=== PATIENT | male | born 1970 | race Caucasian/White ===

== ENCOUNTER 2017-02-09 13:02 | Observation (INO) | payer MEDICARE, OTHER ==
[2017-02-09 13:47] LABS: BASOPHILS % (AUTO) 0.7 %; EOSINOPHILS % (AUTO) 1.1 %; HCT - HEMATOCRIT 42.2 % (42.0-52.0); HGB - HEMOGLOBIN 14.4 g/dL (14.0-18.0); LYMPHOCYTES # (AUTO) 0.3 10^3/uL (1.5-3.5); MEAN CORPUSCULAR HEMOGLOBIN 28.7 pg (27.0-31.0); MEAN CORPUSCULAR HGB CONC 34.2 g/dL (32.0-36.0); MEAN PLATELET VOLUME 8.3 fL (7.4-11.4); MONOCYTES # (AUTO) 0.3 10^3/uL (0.0-1.0); MONOCYTES % (AUTO) 6.8 %; NEUTROPHILS % (AUTO) 84.4 %; RED BLOOD COUNT 5.03 10^6/uL (4.70-6.10); RED CELL DISTRIBUTION WIDTH 14.2 % (12.0-15.0); UNCORRECTED WHITE BLOOD COUNT 4.7 x10^3/uL; WHITE BLOOD COUNT 4.7 x10^3/uL (4.8-10.8)
[2017-02-09 14:10] LABS: ALBUMIN/GLOBULIN RATIO 1.3 (1.0-2.2); BILIRUBIN,TOTAL 0.5 mg/dL (0.2-1.0); CALCIUM 9.7 mg/dL (8.5-10.3); CREATININE 0.8 mg/dL (0.6-1.2); POTASSIUM 3.8 mmol/L (3.5-5.0); TOTAL PROTEIN 7.4 g/dL (6.7-8.2)
--- NOTE | 2017-02-09 14:18 | XRAY Preliminary Report ---
Exam: XR CHEST 1 VIEW IMPRESSION: Normal single view chest. [facility] SITE ID: [id number]
--- NOTE | 2017-02-09 14:23 | ED Physician Documentation ---
History of Present Illness - Stated complaint Stated Complaint: LIGHTHEADED - Chief complaint Chief Complaint: Cardiac - Additonal information Additional information: 46-year-old male presents to the emergency department with bilateral chest tightness for the last 1 day. The chest tightness happened yesterday, it is similar to the "MS squeeze "that he has felt in the past except he has had some substernal pain that comes and goes that is worse And that he has never experienced before.The tightness such that he cannot take a deep breath was present for several hours yesterday while the substernal pain came and went. It had improved by the time he went to bed last night. He resumed this morning around 9 AM in a similar fashion but worse.He also reports that when he gets up and stands he feels lightheaded and dizzy. He had a cough yesterday that was nonproductive as no fevers, no lower extremity swelling. His father had an ND before the age of 50, he has a 10-15 year pack history of smoking but is not a current smoker, he also has hypertension and hyperlipidemia. He has never had a cardiac workup before. Review of Systems Constitutional: denies: Fever Eyes: denies: Loss of vision Nose: denies: Congestion Cardiac: reports: Chest pain / pressure. denies: Pedal edema Respiratory: reports: Dyspnea, Cough GI: denies: Abdominal Pain, Nausea, Vomiting : denies: Dysuria Skin: denies: Rash Musculoskeletal: denies: Extremity swelling Neurologic: reports: Other (Lightheadedness with Standing) PD PAST MEDICAL HISTORY - Past Medical History Cardiovascular: Hypertension Respiratory: None Neuro: Multiple sclerosis Endocrine/Autoimmune: None GI: Other : None HEENT: None Psych: None Musculoskeletal: None Derm: None - Past Surgical History Past Surgical History: No General: Cholecystectomy Ortho: Other - Present Medications Home Medications: Ambulatory Orders Medication Instructions Recorded Confirmed Amantadine HCl [Amantadine] 100 mg PO BID 08/01/13 02/09/17 Baclofen 30 mg PO QID 08/01/13 02/09/17 Meloxicam [Mobic] 15 mg PO DAILY PRN 08/01/13 02/09/17 diphenhydrAMINE [Benadryl] 50 mg PO QPM 08/01/13 02/09/17 Cholecalciferol (Vitamin D3) 1,000 unit PO DAILY 09/06/13 02/09/17 [Vitamin D] Multivitamin [Multi Vitamin Daily] 1 tab PO DAILY 09/06/13 02/09/17 Niacin 500 mg PO DAILY 09/06/13 02/09/17 [place]-3/Dha/Epa/Dpa/Fish Oil 1,000 mg PO DAILY 09/06/13 02/09/17 [[place]-3 1,050 mg Softgel] Cyanocobalamin [Vitamin B-12] 500 mg PO DAILY 05/07/14 02/09/17 Fingolimod HCl [Gilenya] 0.5 mg PO DAILY 11/13/14 02/09/17 Losartan [Cozaar] 50 mg PO DAILY 01/02/15 02/09/17 amLODIPine [Norvasc] 5 mg PO DAILY 02/04/16 02/09/17 Cetirizine [ZyrTEC] 10 mg PO DAILY 04/26/16 02/09/17 - Allergies Allergies/Adverse Reactions: Allergies Allergy/AdvReac Type Severity Reaction Status Date / Time No Known Drug Allergies Allergy Verified 02/09/17 13:19 - Social History Does the pt smoke?: Yes Smoking Status: Former smoker Does the pt drink ETOH?: Yes Does the pt have substance abuse?: No - Immunizations Immunizations are current?: Yes - POLST Patient has POLST: No PD ED PE NORMAL - Vitals Vital signs reviewed: Yes - General General: Alert and oriented X 3, No acute distress - HEENT HEENT: Atraumatic - Neck Neck: Supple, no meningeal sign - Cardiac Cardiac: RRR, No murmur - Respiratory Respiratory: No respiratory distress, Clear bilaterally - Abdomen Abdomen: Normal bowel sounds, Soft, Non tender - Derm Derm: Warm and dry - Extremities Extremities: No edema, No calf tenderness / cord - Neuro Neuro: Alert and oriented X 3, No motor deficit, No sensory deficit Results - Vitals Vitals: Vital Signs - 24 hr 02/09/17 13:15 Temperature 36.8 C Heart Rate 93 Respiratory 16 Rate Blood Pressure 143/100 H O2 Saturation 100 Oxygen O2 Source Room air - EKG (time done) 1314 Rate: Rate (enter#) (93) Rhythm: NSR [place]: Normal Intervals: Normal [place], QRS normal QRS: Normal Ischemia: ST depression (1mm or less lead I, V4-V6, no ST elevations) - Labs Labs: Laboratory Tests 02/09/17 02/09/17 02/09/17 13:30 13:30 13:30 WBC 4.7 L RBC 5.03 Hgb 14.4 Hct 42.2 MCV 84.0 MCH 28.7 MCHC 34.2 RDW 14.2 Plt Count 296 MPV 8.3 Neut # 4.0 Lymph # 0.3 L [place] # 0.3 Eos # 0.0 Baso # 0.0 Absolute Nucleated RBC 0.00 Nucleated RBC % 0.0 D-Dimer Sodium 137 Potassium 3.8 Chloride 101 Carbon Dioxide 24 Anion Gap 12.0 BUN 14 Creatinine 0.8 Estimated GFR (MDRD) 104 Glucose 172 H Calcium 9.7 Total Bilirubin 0.5 AST 32 ALT 63 H Alkaline Phosphatase 55 Troponin I < 0.04 Total Protein 7.4 Albumin 4.2 Globulin 3.2 Albumin/Globulin Ratio 1.3 Lipase 24 02/09/17 13:30 WBC RBC Hgb Hct MCV MCH MCHC RDW Plt Count MPV Neut # Lymph # [place] # Eos # Baso # Absolute Nucleated RBC Nucleated RBC % D-Dimer < 200.0 L Sodium Potassium Chloride Carbon Dioxide Anion Gap BUN Creatinine Estimated GFR (MDRD) Glucose Calcium Total Bilirubin AST ALT Alkaline Phosphatase Troponin I Total Protein Albumin Globulin Albumin/Globulin Ratio Lipase PD MEDICAL DECISION MAKING - ED course ED course: 46-year-old male presents to the emergency department with 2 different qualities of chest pain over the last 24 hours, one is a generalized chest squeezing, the other is a substernal pain.While the constant squeezing is somewhat atypical for cardiac chest pain, his substernal discomfort is more concerning to me given that the patient has multiple risk factors including a smoking history, early history of ND in his father and hypertension as well as hyperlipidemia. He is moderate risk by heart score. D-dimer negative, low suspicion for PE. Discussed with neurology possibility of MS related illness, per conversation he would have no life-threatening diagnoses related to his MS. Neurologist also warned that the patient may have a low lymphocyte count from his MS medication Gilenya, but this does not indicate immunosuppression. 332pm Discussed patient's case with Dr. Parmar, agrees with observation stay for rule out ND, updated patient and his regarding this plan. Patient ordered for an aspirin. - Consults Consults: Consulted (name) (Dr. 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
--- NOTE | 2017-02-09 14:40 | XRAY Report ---
EXAM: CHEST RADIOGRAPHY EXAM DATE: 02/09/2017 01:50 PM. CLINICAL HISTORY: Shortness of breath, chest pain. COMPARISON: No prior chest. CT abdomen and pelvis 07/26/2015. TECHNIQUE: 1 view. FINDINGS: Lungs/Pleura: No focal opacities evident. No pleural effusion. No pneumothorax. Mediastinum: Within exam limitations, the cardiomediastinal contour is normal. Other: None. IMPRESSION: Normal single view chest. [facility] Referring Provider Line: [phone] SITE ID: [id number]
[2017-02-09] MEDS ORDERED: ASPIRIN CHEW 81 MG TABLET PO STA (15:27)
[2017-02-09] MEDS ORDERED: ASPIRIN CHEW 81 MG TABLET ONE (15:36)
[2017-02-09] MEDS ORDERED: NITROGLYCERIN SL 0.4 MG TABLET SL PRN (15:57)
[2017-02-09] MEDS ORDERED: ACETAMINOPHEN 325 MG TABLET PO PRN (16:04)
[2017-02-09] MEDS ORDERED: ONDANSETRON 4 MG/2 ML VIAL IVP PRN (16:06)
[2017-02-09] MEDS ORDERED: SODIUM CHLORIDE FLUSH 0.9% 10 ML SYRINGE IVP PRN (16:07)
[2017-02-09] MEDS ORDERED: CETIRIZINE 10 MG TABLET PO PRN (16:10)
--- NOTE | 2017-02-09 16:15 | HISTORY & PHYSICAL EXAMINATION ---
Chief Complaint - Chief Complaint Chief Complaint: chest pain History of Present Illness - Admitted From Admitted From:: ER - History Obtained From History obtained from: pt - History of Present Illness HPI Comment/Other: This a 46-year-old male with a significant past medical history of MS , HTN, Hyperlipidemia, history of cigarette smoking, who present ER complains of chest tightness, and left anterior chest pain. Pt report his chest pain is on and off, sharpness. The pain suddenly appears and last about 5 minutes. Pt also report he feel some of shortness of breath when he feel chest tightness. Pt report he feel left neck pain which is associated with left chest pain. Pt report his father had an [place] before the age of 50 yrs. Pt report he has around 15 years history of cigarette smoking but not currently. No alcohol and drug issue. Pt denies the chest pain is associated with nausea, vomiting, or diaphoresis. ER provider called pt's neurologist about his chest tightness with history of MS. Neurologist report this parethesia may due to called "MS HUG" which wound not cause severe sequel or require emergence treatment. Pt's D- dimer is negative, low suspicion for PE regarding pt's reporting of some shortness of breath. Initiatly troponin is negative. EKG is sinus rhythm. Pt is admitted for chest pain for ruling out of [place]. History - Past Medical History Cardiovascular: reports: Hypertension Respiratory: reports: None Neuro: reports: Multiple sclerosis Endocrine/Autoimmune: reports: None GI: reports: Other : reports: None HEENT: reports: None Psych: reports: None Musculoskeletal: reports: None Derm: reports: None MRSA Hx?: No - Past Surgical History General: reports: Cholecystectomy Ortho: reports: Other - Family & Social History Family History: Mother: , Cancer, Hypertension, Father: , CAD Family History Comment/Other: Pt report he retired due to disability. Pt is with her and living at [place] with four children. pt report he has history of cigarette smoker but no alcoholic and drug issue. Living arrangement: At home Living Situation: With spouse/s.o., With family - Substance History Use: Uses substance without health or social issues: NONE Abuse: Recurrent use of substance despite neg consequences: NONE Dependence: Experiences withdrawal or developed tolerances: NONE Tobacco Details: Cigarettes - POLST Patient has POLST: No POLST Status: Full Code Meds/Allgy - Home Medications Home Medications: Ambulatory Orders Medication Instructions Recorded Confirmed Amantadine HCl [Amantadine] 100 mg PO BID 08/01/13 02/09/17 Meloxicam [Mobic] 15 mg PO DAILY PRN 08/01/13 02/09/17 diphenhydrAMINE [Benadryl] 50 mg PO QPM 08/01/13 02/09/17 Cholecalciferol (Vitamin D3) 2,000 unit PO DAILY 09/06/13 02/09/17 [Vitamin D] Losartan [Cozaar] 100 mg PO DAILY 01/02/15 02/09/17 amLODIPine [Norvasc] 2.5 mg PO DAILY 02/04/16 02/09/17 Cetirizine [ZyrTEC] 10 mg PO DAILY PRN 04/26/16 02/09/17 Baclofen 30 mg PO QID 02/09/17 02/09/17 Fingolimod HCl [Gilenya] 0.5 mg PO DAILY 02/09/17 02/09/17 Multivitamin [Theragran] 1 tab PO DAILY 02/09/17 02/09/17 - Allergies Allergies/Adverse Reactions: Allergies Allergy/AdvReac Type Severity Reaction Status Date / Time No Known Drug Allergies Allergy Verified 02/09/17 13:19 Review of Systems - Constitutional Constitutional: denies: Fatigue, Fever, Chills, Malaise, Weakness, Poor appetite , Diaphoresis, Night sweats - Eyes Eyes: denies: Pain, Irritation, Amaurosis, Blurred vision, Spots in vision, Field loss, Vision loss, Dipolpia - Ears, Nose & Throat Ears, Nose & Throat: denies: Ear pain, Hearing loss, Hearing aids, Tinnitus, Vertigo, Nasal pain, Nasal discharge, Nosebleeds, Nasal congestion, Sore throat , Mouth lesions, Bleeding gums - Cardiovascular Cariovascular: reports: Chest pain. denies: Irregular heart rate, Palpitations , Edema, Lightheadedness, Syncope, Exertional dyspnea, Decr. exercise tolerance - Respiratory Respiratory: reports: SOB with exertion. denies: Cough, Sputum production, Wheezing, Snoring, Hemoptysis, Orthopnea, SOB at rest - Gastrointestinal Gastrointestinal: denies: Abdominal pain, Abdominal distention, Constipation, Diarrhea, Change in bowel habits, Rectal bleeding, Black stools, Bloody stools, Nausea, Vomiting, Marvin blood emesis, Coffee grounds emesis - Genitourinary Genitourinary: denies: Dysuria, Frequency, Urgency, Hematuria, Incontinence, Flank pain, Nocturia, Urethral discharge - Musculoskeletal Musculoskeletal: denies: Muscle pain, Back pain, Muscle aches, Stiffness, Limited range of motion, Muscle weakness, Gout, Joint pain - Integumentary Integumentary: denies: Rash, Pruritis, Lesions, Dryness, Lumps, Acne, Pigment changes, Nail changes - Neurological Neurological: denies: General weakness, Focal weakness, Headache, Dizziness, Numbness, Memory problems, Pre-existing deficit, Abnormal gait, Seizures, Incoordination, Slurred speech - Psychiatric Psychiatric: denies: Depression, Anxiety, Suicidal, Delusions, Hallucinations, Homicidal - Endocrine Endocrine: denies: Polyuria, Polydypsia, Polyphagia, Intolerance to cold - Hematologic/Lymphatic Hematologic/Lymphatic: denies: Anemia, Bruising, Petechiae, Blood clots, Lymphadenopathy, Bleeding tendencies, Recurrent infections Exam - Vital Signs Reviewed Vital Signs: Yes Vital Signs: Vital Signs x48h Temp Pulse Resp BP Pulse Ox 02/09/17 13:15 36.8 C 93 16 143/100 H 100 - Physical Exam General Appearance: positive: No acute distress, Alert. negative: Lethargic Eyes Bilateral: positive: Normal inspection, PERRL, EOMI. negative: No lid inflammation, Conjunctivae nml ENT: positive: ENT inspection nml, Pharynx nml, No signs of dehydration. negative: Purulent nasal drainage, Pharyngeal erythema, Oral lesions, Dry mucous membranes Neck: positive: Nml inspection, Thyroid nml, No JVD, Trachea midline. negative : Thyromegaly, Lymphadenopathy (R), Lymphadenopathy (L), Stiff neck, Carotid bruit, Swelling/bruising, Tracheal deviation Respiratory: positive: Chest non-tender, No respiratory distress, Breath sounds nml. negative: Wheezes, Rales, Rhonchi Cardiovascular: positive: Regular rate & rhythm, No murmur, No gallop. negative : Irregularly irregular, Extrasystoles, Tachycardia, Bradycardia, Systolic murmur, Diastolic murmur Peripheral Pulses: positive: 2+ Abdomen: positive: Non-tender, No organomegaly, Nml bowel sounds, No distention. negative: Tenderness, Guarding, Rebound, Abnml bowel sounds Back: positive: Nml inspection. negative: CVA tenderness (R), CVA tenderness (L ) Skin: positive: Color nml, No rash, Warm, Dry. negative: Cyanosis, Diaphoresis , Pallor Extremities: positive: Non-tender, Full ROM, Nml appearance. negative: Calf tenderness, Joint swelling, Odell's sign/cords Neurologic/Psychiatric: positive: Oriented x3, Motor nml, Sensation nml, Mood/ affect nml. negative: Weakness, Sensory loss, Facial droop, Slurred/abnml speech, Depressed mood/affect Conclusion/Plan - Problem List (1) Chest pain Conclusion/Plan: pt with history of cigarette smoking, HTN, hyperlipidemia, strong family history of CAD. pt did not have cardiac workup before plan: serial of troponin Nitro PRN Aspirin 81 daily. Aspirin has been given 325 mg at ER EKG PRN ECHO lipid panel Mycardia perfusion test (2) Multiple sclerosis Conclusion/Plan: ER called pt's neurologist, most likely pt may have MS hug, resume Gilenya vital and tele monitor will try Gabapentin if symptom insistence (3) Hypertension Conclusion/Plan: stable BP, resume home BP meds vital monitor (4) Hyperlipidemia Conclusion/Plan: resume home meds, recheck lipid panel (5) DVT prophylaxis Conclusion/Plan: SCD and lovenox (6) Full code status Conclusion/Plan: pt request full code - Lab Results Fish Bones: 02/10/17 02:57 02/10/17 02:57 Issues/Core Measures - Anticipated LOS Anticipated Stay Length: Less than 2 midnights (expected less than 2 midnights for chest pain rule out) - [facility] Requirement for [facility] I expect patient to be DC'd or transferred within 96 hours.: Yes
[2017-02-09] MEDS: BACLOFEN 10 MG TABLET PO SCH ×2 (17:16→21:11)
[2017-02-09] MEDS ORDERED: CALCIUM CARBONATE CHEW 500 MG TABLET PO PRN (19:17)
[2017-02-09] MEDS ORDERED: diphenhydrAMINE 25 MG CAPSULE PO SCH (21:00)
[2017-02-09] MEDS: SODIUM CHLORIDE FLUSH 0.9% 10 ML SYRINGE IVP SCH (21:11)
[2017-02-10 03:05] LABS: BASOPHILS # (AUTO) 0.1 10^3/uL (0.0-0.1); BASOPHILS % (AUTO) 1.4 %; EOSINOPHILS # (AUTO) 0.1 10^3/uL (0.0-0.7); EOSINOPHILS % (AUTO) 1.8 %; HCT - HEMATOCRIT 40.7 % (42.0-52.0); HGB - HEMOGLOBIN 13.5 g/dL (14.0-18.0); LYMPHOCYTES # (AUTO) 0.3 10^3/uL (1.5-3.5); LYMPHOCYTES % (AUTO) 5.8 %; MEAN CORPUSCULAR HEMOGLOBIN 28.3 pg (27.0-31.0); MEAN CORPUSCULAR HGB CONC 33.2 g/dL (32.0-36.0); MEAN CORPUSCULAR VOLUME 85.2 fL (80.0-94.0); MEAN PLATELET VOLUME 8.4 fL (7.4-11.4); MONOCYTES # (AUTO) 0.3 10^3/uL (0.0-1.0); MONOCYTES % (AUTO) 6.3 %; NEUTROPHILS # (AUTO) 4.1 10^3/uL (1.5-6.6); NEUTROPHILS % (AUTO) 84.7 %; NUCLEATED RED BLOOD CELLS AUTO 0.1 /100WBC; RED BLOOD COUNT 4.77 10^6/uL (4.70-6.10); RED CELL DISTRIBUTION WIDTH 14.6 % (12.0-15.0); UNCORRECTED WHITE BLOOD COUNT 4.8 x10^3/uL; WHITE BLOOD COUNT 4.8 x10^3/uL (4.8-10.8)
[2017-02-10 03:21] LABS: ALBUMIN/GLOBULIN RATIO 1.4 (1.0-2.2); BILIRUBIN,TOTAL 0.5 mg/dL (0.2-1.0); BUN - BLOOD UREA NITROGEN 12 mg/dL (6-20); CARBON DIOXIDE - CO2 25 mmol/L (21-32); CHLORIDE 105 mmol/L (101-111); CHOL/HDL RATIO 6.2 (<5.0); CHOLESTEROL 242 mg/dL; CREATININE 0.9 mg/dL (0.6-1.2); GFR - MDRD 91 (>89); GLUCOSE 122 mg/dL (70-100); HDL CHOLESTEROL 39 mg/dL; LDL/HDL RATIO 4.4 (<3.6); POTASSIUM 3.8 mmol/L (3.5-5.0); SODIUM 142 mmol/L (135-145); TOTAL PROTEIN 6.6 g/dL (6.7-8.2); TRIGLYCERIDES 166 mg/dL; VLDL CHOLESTEROL 33 mg/dL
[2017-02-10] MEDS: BACLOFEN 10 MG TABLET PO SCH ×2 (05:06→10:24)
[2017-02-10] MEDS: SODIUM CHLORIDE FLUSH 0.9% 10 ML SYRINGE IVP SCH ×2 (05:47→15:07)
[2017-02-10] MEDS: GABAPENTIN 100 MG CAPSULE PO SCH ×2 (08:57→15:07)
[2017-02-10] MEDS ORDERED: CHOLECALCIFEROL 1,000 UNIT TABLET PO SCH (09:00)
[2017-02-10] MEDS ORDERED: LOSARTAN 50 MG TABLET PO SCH (09:00)
[2017-02-10] MEDS ORDERED: amLODIPine 5 MG TABLET PO SCH (09:00)
[2017-02-10] MEDS ORDERED: ASPIRIN EC 81 MG TABLET PO SCH (09:00)
[2017-02-10] MEDS ORDERED: MELOXICAM 7.5 MG TABLET PO PRN (09:00)
[2017-02-10] MEDS ORDERED: FAMOTIDINE 20 MG TABLET PO SCH (09:00)
[2017-02-10] MEDS ORDERED: MULTIVITAMIN TABLET PO SCH (09:00)
[2017-02-10] MEDS ORDERED: ENOXAPARIN 40 MG/0.4 ML SYRINGE SUBQ SCH (09:00)
[2017-02-10] MEDS ORDERED: SODIUM CHLORIDE 0.9% 1,000 ML IV SCH (09:00)
[2017-02-10] MEDS ORDERED: POLYETHYLENE GLYCOL 3350 17 GM PACKET PO SCH (09:00)
[2017-02-10] MEDS ORDERED: REGADENOSON 0.4 MG/5 ML SYRINGE IVP ONE ×2 (09:58→14:05)
[2017-02-10] MEDS ORDERED: AMANTADINE 100 MG CAPSULE PO SCH (10:00)
--- NOTE | 2017-02-10 10:08 | Discharge Plan ---
Discharge Plan Disposition: 01 Home, Self Care Condition: Stable Prescriptions: Gabapentin [Neurontin] 100 mg PO TID #20 capsule Diet: Cardiac Activity Restrictions: Activity as Tolerated Shower Restrictions: No Driving Restrictions: No Weight Bearing: Full Weight Instruction Topics: Multiple Sclerosis, ED Chest Pain Noncardiac Ch Additional Instructions or Follow Up instructions: May see PCP in one week, follow up the neurologist as schedule Follow-Up Care: [facility] - Cardiac No Smoking: If you smoke, Please STOP! Call for help. Follow-up with: RUPERTO DINH [Primary Care Provider] -
--- NOTE | 2017-02-10 15:02 | Nuclear Medicine Prelim Report ---
Exam: NM MYOCARDIAL PERFUSION STR/RST IMPRESSION: 1. No scintigraphic evidence of inducible ischemia or infarct. 2. Left ventricular ejection fraction estimated at 55%. [facility] The call report notification system was initiated by Dr. Fabrice Taylor at 14:52 hrs on 02/10/17. The above findings were discussed with Dr Chen by Dr. Fabrice Taylor at 15:01 hrs on 02/10/17. SITE ID: [id number]
--- NOTE | 2017-02-10 15:05 | Nuclear Medicine Report ---
EXAM: NUCLEAR MEDICINE MYOCARDIAL PERFUSION STRESS AND REST EXAM DATE: 02/10/2017 09:57 AM. CLINICAL HISTORY: Chest pain. COMPARISON: X-ray 02/09/2017. TECHNIQUE: Patient given 9.9 mCi technetium 99m sestamibi IV for the rest portion of the study. Gated cardiac SPECT scintigraphy performed with multiplanar reformats. After an appropriate delay, patient given 0.4 mg Lexiscan IV for pharmacologic stress. Next, patient given 42.6 mCi technetium 99m sestamibi IV. Cardiac gated SPECT scintigraphy performed with wall fredy on analysis, multiplanar reformats and left ventricular ejection fraction estimation. FINDINGS: There is uniform radiopharmaceutical activity in the left ventricular myocardium on stress and rest i maging. No stress related fixed or reversible perfusion defects. Left ventricular ejection fraction estimated at 55%. Wall motion appears uniform. IMPRESSION: 1. No scintigraphic evidence of inducible ischemia or infarct. 2. Left ventricular ejection fraction estimated at 55%. JEREMIAHA The call report notification system was initiated by Dr. Fabrice Taylor at 14:52 hrs on 02/10/17. The above findings were discussed with Dr Chne by Dr. Fabrice Taylor at 15:01 hrs on 02/10/17. Referring Provider Line: [phone] SITE ID: [id number]
--- NOTE | 2017-02-10 15:23 | DISCHARGE SUMMARY ---
Discharge Summary Discharge Date: 02/10/17 Discharging Provider: GREEN Primary Care Provider: Anders Sage Condition at Discharge: Stable Discharge Disposition: 01 Home, Self Care Discharge Facility Name: home - DIAGNOSES Admission Diagnoses: 1) Chest pain (2) Multiple sclerosis (3) Hypertension (4) Hyperlipidemia Discharge Diagnoses with Status of Each Condition: (1) Chest pain no more chest pain. Chest tightness is released by medication Gabapentin (2) Multiple sclerosis stable, follow up pt's neurologist to manage (3) Hypertension stable (4) Hyperlipidemia PCP management - HPI History of Present Illness: please refer from my HPI on 02/09/17 as the following: This a 46-year-old male with a significant past medical history of MS , HTN, Hyperlipidemia, history of cigarette smoking, who present ER complains of chest tightness, and left anterior chest pain. Pt report his chest pain is on and off, sharpness. The pain suddenly appears and last about 5 minutes. Pt also report he feel some of shortness of breath when he feel chest tightness. Pt report he feel left neck pain which is associated with left chest pain. Pt report his father had an [place] before the age of 50 yrs. Pt report he has around 15 years history of cigarette smoking but not currently. No alcohol and drug issue. Pt denies the chest pain is associated with nausea, vomiting, or diaphoresis. ER provider called pt's neurologist about his chest tightness with history of MS. Neurologist report this parethesia may due to called "MS HUG" which wound not cause severe sequel or require emergence treatment. Pt's D- dimer is negative, low suspicion for PE regarding pt's reporting of some shortness of breath. Initiatly troponin is negative. EKG is sinus rhythm. Pt is admitted for chest pain for ruling out of [place]. - CONSULTS | PROCEDURES Procedures: myocardium perfusion test - HOSPITAL COURSE Hospital Course: Pt was admitted for chest pain, chest tightness. Troponin serial, EKG, ECHO, and myocardium perfusion were done base on pt's cardiac risks. All these tests are unremarkable. Pt's chest tightness is well controlled by Gabapentin. - ALLERGIES Allergies/Adverse Reactions: Allergies Allergy/AdvReac Type Severity Reaction Status Date / Time No Known Drug Allergies Allergy Verified 02/09/17 13:19 - MEDICATIONS Home Medications: Ambulatory Orders Medication Instructions Recorded Confirmed Amantadine HCl [Amantadine] 100 mg PO BID 08/01/13 02/09/17 Meloxicam [Mobic] 15 mg PO DAILY PRN 08/01/13 02/09/17 diphenhydrAMINE [Benadryl] 50 mg PO QPM 08/01/13 02/09/17 Cholecalciferol (Vitamin D3) 2,000 unit PO DAILY 09/06/13 02/09/17 [Vitamin D3] Losartan [Cozaar] 100 mg PO DAILY 01/02/15 02/09/17 amLODIPine [Norvasc] 2.5 mg PO DAILY 02/04/16 02/09/17 Cetirizine [ZyrTEC] 10 mg PO DAILY PRN 04/26/16 02/09/17 Baclofen 30 mg PO QID 02/09/17 02/09/17 Fingolimod HCl [Gilenya] 0.5 mg PO DAILY 02/09/17 02/09/17 Multivitamin [Theragran] 1 tab PO DAILY 02/09/17 02/09/17 Gabapentin [Neurontin] 100 mg PO TID #20 capsule 02/10/17 - PHYSICAL EXAM AT DISCHARGE General Appearance: positive: No acute distress, Alert. negative: Lethargic Eyes Bilateral: positive: Normal inspection, PERRL, No lid inflammation, Conjunctivae nml ENT: positive: ENT inspection nml, Pharynx nml, No signs of dehydration. negative: Purulent nasal drainage, Pharyngeal erythema, Oral lesions, Dry mucous membranes Neck: positive: Nml inspection, Thyroid nml, No JVD, Trachea midline. negative : Thyromegaly, Lymphadenopathy (R), Lymphadenopathy (L), Stiff neck, Carotid bruit, Swelling/bruising, Tracheal deviation Respiratory: positive: Chest non-tender, No respiratory distress, Breath sounds nml. negative: Wheezes, Rales, Rhonchi Cardiovascular: positive: Regular rate & rhythm, No murmur, No gallop. negative : Irregularly irregular, Extrasystoles, Tachycardia, Bradycardia, Systolic murmur, Diastolic murmur Peripheral Pulses: positive: 2+ Abdomen: positive: Non-tender, No organomegaly, Nml bowel sounds, No distention. negative: Tenderness, Guarding, Rebound, Abnml bowel sounds Back: positive: Nml inspection. negative: CVA tenderness (R), CVA tenderness (L ) Skin: positive: Color nml, No rash, Warm, Dry. negative: Cyanosis, Diaphoresis , Pallor Extremities: positive: Non-tender, Full ROM, Nml appearance. negative: Calf tenderness, Joint swelling, Odell's sign/cords Neurologic/Psychiatric: positive: Oriented x3, Motor nml, Sensation nml, Mood/ affect nml. negative: Weakness, Sensory loss, Facial droop, Slurred/abnml speech, Depressed mood/affect Reflexes: Knee (R): 2+, Knee (L): 2+ Babinski Reflex: Right: Absent, Left: Absent - LABS Result Diagrams: 02/10/17 02:57 02/10/17 02:57 - FOLLOW UP Follow Up: May see PCP in one week, follow up neurologist as the schedule. Gabapentin is prescribed to pt as scheduled. - TIME SPENT Time Spent in Discharge (Minutes): 40
[2017-02-10 16:05] VITALS: BP 124/82
--- NOTE | 2017-02-15 10:58 | CARDIAC PROCEDURE NOTE ---
DATE OF SERVICE: 02/10/2017 PROVIDER: Odette Chen MD PROCEDURE: Pharmacologic cardiac stress test. PROCEDURE SYMPTOMS: Chest pain. CARDIAC RISK FACTORS: Include age, family history, hypertension, hyperlipidemia , and former smoker. PREVIOUS CARDIAC PROCEDURES: None. CLINICAL HISTORY: A 46-year-old inpatient male without known coronary artery disease. Initial resting vital signs--BP 126/82, heart rate 79, height 69 inches , weight 239 pounds. PROCEDURE AND FINDINGS: Patient identify and date verified, consent signed , Lexiscan checked for correct dose and expiration date. Pharmacologic stress testing was performed with Lexiscan at a dose of 0.4 mg over 10 seconds. The heart rate increased to 108 beats per minute from the infusion. Blood pressure response was normal during the stress procedure. The patient developed mild shortness of breath and lightheadedness from the infusion. This resolved spontaneously. The resting electrocardiogram demonstrated normal sinus rhythm with early transition. There were no ST or T-wave abnormalities. Maximum ST segment depression with stress was 0 mm. There was no ectopy. FINAL IMPRESSIONS: 1. Negative electrocardiogram for ischemia in the setting of vasodilator stress. 2. Nondiagnostic stress test for angina. 3. No ectopy. DISCUSSION AND RECOMMENDATIONS: Await myocardial perfusion report. TD: 02/11/2017 08:17 JUANY
== END 2017-02-10 16:33 | disposition home or self-care (01) ==
LOC: ED 13:02 → OBS 16:16
PROVIDERS: ADMIT Nurse Practitioner Gerontology; ATTEND Nurse Practitioner Gerontology
DX: R07.89 Other chest pain (principal); G35 Multiple sclerosis; I10 Essential (primary) hypertension; E78.5 Hyperlipidemia, unspecified; Z82.49 Family history of ischemic heart disease and other diseases of the circulatory system; Z87.891 Personal history of nicotine dependence; Z90.49 Acquired absence of other specified parts of digestive tract
CPT/HCPCS: 36415; 71010; 78452; 80053; 80061; 83690; 84484; 85025; 85379; 93005; 93017; 93306; 96360; 96372; 99283; 99285; A9270; A9500; G0378; J1650; J2785

== ENCOUNTER 2017-05-19 20:43 | Outpatient (CLI) | payer MEDICARE, OTHER | END 2017-05-19 20:44 | disposition critical access hospital (66) | LOC: EMS 20:43 | PROVIDERS: ATTEND Surgery | DX: R42 Dizziness and giddiness (principal); R11.0 Nausea | CPT/HCPCS: A0425; A0429 ==

== ENCOUNTER 2017-05-19 20:52 | Emergency (ER) | payer MEDICARE, OTHER ==
--- NOTE | 2017-05-19 21:02 | ED Physician Documentation ---
PD HPI SYNCOPE - Stated complaint Stated Complaint: NEAR SYNCOPE - Chief complaint Chief Complaint: Neuro - History obtained from History obtained from: Patient, EMS - History of Present Illness Timing - onset: Other (46-year-old gentleman with history of Vasovagal syncope and MS presents with a presyncopal episode. He was eating dinner and started to feel little nauseous and then burped and then got dizzy and laid down. There was no associated new chest pain, but he has been dealing with right- sided intercostal pain for quite some time related to his MS. He denies shortness of breath. He feels back to normal now.) Review of Systems Constitutional: denies: Fever, Chills Nose: denies: Rhinorrhea / runny nose, Congestion Cardiac: denies: Palpitations Respiratory: denies: Dyspnea, Cough GI: denies: Abdominal Pain, Vomiting, Diarrhea PD PAST MEDICAL HISTORY - Past Medical History Cardiovascular: Hypertension Respiratory: None Neuro: Multiple sclerosis Endocrine/Autoimmune: None GI: Other : None HEENT: None Psych: None Musculoskeletal: None Derm: None - Past Surgical History Past Surgical History: No General: Cholecystectomy Ortho: Other - Present Medications Home Medications: Ambulatory Orders Medication Instructions Recorded Confirmed Meloxicam [Mobic] 15 mg PO DAILY PRN 08/01/13 02/09/17 Losartan [Cozaar] 100 mg PO DAILY 01/02/15 02/09/17 amLODIPine [Norvasc] 2.5 mg PO DAILY 02/04/16 02/09/17 Cetirizine [ZyrTEC] 10 mg PO DAILY PRN 04/26/16 02/09/17 Baclofen 30 mg PO QID 02/09/17 02/09/17 Multivitamin [Theragran] 1 tab PO DAILY 02/09/17 02/09/17 Gabapentin [Neurontin] 100 mg PO TID #20 capsule 02/10/17 - Allergies Allergies/Adverse Reactions: Allergies Allergy/AdvReac Type Severity Reaction Status Date / Time No Known Drug Allergies Allergy Verified 05/19/17 20:57 - Social History Does the pt smoke?: Yes Smoking Status: Former smoker Does the pt drink ETOH?: Yes Does the pt have substance abuse?: No - Immunizations Immunizations are current?: Yes - POLST Patient has POLST: No POLST Status: Full Code PD ED PE NORMAL - Vitals Vital signs reviewed: Yes - General General: Alert and oriented X 3, No acute distress - HEENT HEENT: PERRL, EOMI - Neck Neck: Supple, no meningeal sign, No bony TTP - Cardiac Cardiac: RRR, No murmur - Respiratory Respiratory: No respiratory distress, Clear bilaterally - Abdomen Abdomen: Normal bowel sounds, Soft, Non tender - Back Back: No CVA TTP, No spinal TTP - Derm Derm: Normal color, Warm and dry - Extremities Extremities: No edema, No calf tenderness / cord - Neuro Neuro: Alert and oriented X 3, Normal speech Results - Vitals Vitals: Vital Signs - 24 hr 05/19/17 20:53 Temperature 36.8 C Heart Rate 95 Respiratory 16 Rate Blood Pressure 142/90 H O2 Saturation 99 Oxygen O2 Source Room air - EKG (time done) 2103 Rate: Rate (enter#) (86) Rhythm: NSR [place]: Normal Intervals: Normal [place] QRS: Normal Ischemia: Q waves (inferior) Compare to prior EKG: Unchanged from prior EKG (no chg from 02/11/17) Computer interpretation: Agree with computer - Labs Labs: Laboratory Tests 05/19/17 05/19/17 05/19/17 21:35 21:35 21:35 WBC 6.5 RBC 4.47 L Hgb 12.9 L Hct 37.9 L MCV 84.8 MCH 28.9 MCHC 34.1 RDW 14.2 Plt Count 309 MPV 8.4 Neut # 5.8 Lymph # 0.2 L [place] # 0.5 Eos # 0.1 Baso # 0.0 Absolute Nucleated RBC 0.00 Nucleated RBC % 0.1 Sodium 140 Potassium 3.4 L Chloride 104 Carbon Dioxide 26 Anion Gap 10.0 BUN 11 Creatinine 0.8 Estimated GFR (MDRD) 104 Glucose 207 H Calcium 9.0 Total Bilirubin 0.3 AST 25 ALT 50 Alkaline Phosphatase 57 Troponin I < 0.04 Total Protein 6.8 Albumin 3.7 Globulin 3.1 Albumin/Globulin Ratio 1.2 Lipase 15 L PD MEDICAL DECISION MAKING - ED course Complexity details: reviewed old records (normal cardioloyte stress and normal echo 02/13) ED course: 46-year-old gentleman with what sounds like a vagal episode brought on by a combination of large burp and nausea at the same time. Now back to normal. Workup was negative. Departure - Departure Disposition: 01 Home, Self Care Clinical Impression: Vasovagal near-syncope Condition: Good Record reviewed to determine appropriate education?: Yes Instructions: ED Near Syncope Vasovagal Comments: Call your doctor to arrange a follow-up appointment, make the next available appointment. In the interim, return anytime if worse or if new symptoms develop.
[2017-05-19 21:42] LABS: BASOPHILS % (AUTO) 0.4 %; EOSINOPHILS # (AUTO) 0.1 10^3/uL (0.0-0.7); EOSINOPHILS % (AUTO) 1.4 %; HGB - HEMOGLOBIN 12.9 g/dL (14.0-18.0); LYMPHOCYTES # (AUTO) 0.2 10^3/uL (1.5-3.5); LYMPHOCYTES % (AUTO) 2.7 %; MEAN CORPUSCULAR HEMOGLOBIN 28.9 pg (27.0-31.0); MEAN CORPUSCULAR HGB CONC 34.1 g/dL (32.0-36.0); MEAN CORPUSCULAR VOLUME 84.8 fL (80.0-94.0); MEAN PLATELET VOLUME 8.4 fL (7.4-11.4); MONOCYTES # (AUTO) 0.5 10^3/uL (0.0-1.0); NEUTROPHILS # (AUTO) 5.8 10^3/uL (1.5-6.6); NEUTROPHILS % (AUTO) 88.5 %; PLT - PLATELET COUNT 309 10^3/uL (130-450); RED BLOOD COUNT 4.47 10^6/uL (4.70-6.10); RED CELL DISTRIBUTION WIDTH 14.2 % (12.0-15.0); WHITE BLOOD COUNT 6.5 x10^3/uL (4.8-10.8)
[2017-05-19 21:55] LABS: ALBUMIN 3.7 g/dL (3.2-5.5); ALBUMIN/GLOBULIN RATIO 1.2 (1.0-2.2); BILIRUBIN,TOTAL 0.3 mg/dL (0.2-1.0); CREATININE 0.8 mg/dL (0.6-1.2); TOTAL PROTEIN 6.8 g/dL (6.7-8.2)
[2017-05-19 22:24] VITALS: BP 141/92
== END 2017-05-19 22:23 | disposition home or self-care (01) ==
LOC: EDUNIT# → ED 20:52
DX: R55 Syncope and collapse (principal); I10 Essential (primary) hypertension; G35 Multiple sclerosis; Z87.891 Personal history of nicotine dependence
CPT/HCPCS: 36415; 80053; 83690; 84484; 85025; 93005; 99283; 99284

== ENCOUNTER 2018-04-21 08:34 | Emergency (ER) | payer MEDICARE, OTHER ==
[2018-04-21] MEDS ORDERED: IOVERSOL 320 100 ML VIAL IVP ONE ×3 (08:35→10:24)
[2018-04-21 09:27] LABS: BASOPHILS % (AUTO) 0.1 %; EOSINOPHILS # (AUTO) 0.1 10^3/uL (0.0-0.7); EOSINOPHILS % (AUTO) 0.8 %; HGB - HEMOGLOBIN 13.5 g/dL (14.0-18.0); LYMPHOCYTES # (AUTO) 0.3 10^3/uL (1.5-3.5); MEAN CORPUSCULAR HEMOGLOBIN 28.9 pg (27.0-31.0); MEAN CORPUSCULAR HGB CONC 33.7 g/dL (32.0-36.0); MEAN CORPUSCULAR VOLUME 85.9 fL (80.0-94.0); MEAN PLATELET VOLUME 8.7 fL (7.4-11.4); MONOCYTES # (AUTO) 0.7 10^3/uL (0.0-1.0); MONOCYTES % (AUTO) 7.5 %; NEUTROPHILS # (AUTO) 8.3 10^3/uL (1.5-6.6); NEUTROPHILS % (AUTO) 88.6 %; PLT - PLATELET COUNT 303 10^3/uL (130-450); RED BLOOD COUNT 4.65 10^6/uL (4.70-6.10); WHITE BLOOD COUNT 9.4 x10^3/uL (4.8-10.8)
[2018-04-21 09:35] LABS: BILIRUBIN,URINE NEGATIVE (NEGATIVE); GLUCOSE, URINE (UA) NEGATIVE (NEGATIVE); KETONES,URINE (UA) TRACE mg/dL (NEGATIVE); LEUKOCYTE ESTERASE, URINE NEGATIVE (NEGATIVE); NITRITE,URINE NEGATIVE (NEGATIVE); OCCULT BLOOD,URINE NEGATIVE (NEGATIVE); PH,URINE 6.5 PH (5.0-7.5); PROTEIN,URINE NEGATIVE (NEGATIVE); UROBILINOGEN,URINE 0.2 (NORMAL) E.U./dL (NORMAL)
[2018-04-21 09:36] LABS: CLARITY,URINE CLEAR (CLEAR)
[2018-04-21 09:39] LABS: ALBUMIN 4.1 g/dL (3.2-5.5); ALBUMIN/GLOBULIN RATIO 1.4 (1.0-2.2); CALCIUM 9.2 mg/dL (8.5-10.3); CREATININE 0.7 mg/dL (0.6-1.2)
--- NOTE | 2018-04-21 10:50 | CT Report ---
Reason: lower abd. pain Procedure Date: 04/21/2018 Accession Number: [id number] / [id number] Procedure: CT - Abdomen/Pelvis W CPT Code: FULL RESULT: EXAM: CT ABDOMEN AND PELVIS EXAM DATE: 04/21/2018 10:23 AM. CLINICAL HISTORY: Lower abd. pain. COMPARISONS: 07/26/2015 CT abdomen and pelvis TECHNIQUE: Routine helical CT imaging was performed through the abdomen and pelvis. IV contrast: OPTI 320 65ML. Enteric contrast: No. Reconstructions: Coronal and sagittal. In accordance with CT protocol optimization, one or more of the following dose reduction techniques were utilized for this exam: automated exposure control, adjustment of mA and/or KV based on patient size, or use of iterative reconstructive technique. FINDINGS: Lung Bases: Unremarkable. Liver: Possible fatty liver. No masses. Gallbladder/Bile Ducts: Status post cholecystectomy Spleen: Normal. Pancreas: Normal. Adrenal Glands: Normal. Kidneys: Normal. No masses or hydronephrosis. Peritoneal Cavity/Bowel: Surgical clip adjacent to the inferior tip of the liver No free fluid, free air or adenopathy. No masses. There is scattered colonic diverticulosis most marked sigmoid colon where there is a segment with wall thickening and adjacent fat inflammatory change without a drainable abscess collection. Findings are consistent with diverticulitis . The appendix is well seen and normal. Pelvic Organs: The bladder and pelvic organs are within normal limits. Vasculature: No aneurysms or other significant abnormality. Bones: No significant abnormality. Other: 7 mm fat-containing umbilical hernia. IMPRESSION: Sigmoid diverticulitis without abscess formation similar in appearance to 07/26/2015. Status post cholecystectomy, subcentimeter fat-containing umbilical hernia, and fatty liver. Otherwise negative. RADIA
[2018-04-21] MEDS ORDERED: PIPERACILLIN/TAZOBACTAM 3.375 GM in SODIUM CHLORIDE 0.9% MINIBAG 100 ML IV STA (11:06)
[2018-04-21] MEDS ORDERED: ONDANSETRON 4 MG/2 ML VIAL IVP STA (11:07)
[2018-04-21] MEDS ORDERED: metroNIDAZOLE 500 MG/100 ML 500 MG/100 ML BAG IV ONE (11:07)
[2018-04-21] MEDS ORDERED: fentaNYL 100 MCG/2 ML VIAL IVP STA ×2 (11:07→13:07)
--- NOTE | 2018-04-21 11:08 | ED Physician Documentation ---
PD HPI ABD PAIN - Stated complaint Stated Complaint: ABD PX - Chief complaint Chief Complaint: Abd Pain - History obtained from History obtained from: Patient, Family (spouse) - History of Present Illness Timing - onset: How many days ago (2) Timing - details: Gradual onset Quality: Dull Location: LLQ Associated symptoms: Nausea Similar symptoms before: Diagnosis (History of diverticulitis twice in the past; once with perforation.) - Additional information Additional information: The patient is a 47-year-old male with a past history of diverticulitis, who presents with lower abdominal pain that started 2 days ago and has become pr ogressively worse. He had diarrhea initially 2 days ago, and took one half Imodium tablet. He has had no diarrhea since that time. He does report nausea, without vomiting. He denies fever or dysuria. During one of his previous bouts of diverticulitis, he had a perforation. Further past medical history is significant for multiple sclerosis. He is status post cholecystectomy. Review of Systems Constitutional: denies: Fever Nose: denies: Congestion Throat: denies: Sore throat Cardiac: denies: Chest pain / pressure Respiratory: denies: Dyspnea, Cough GI: reports: Abdominal Pain, Nausea. denies: Vomiting : denies: Dysuria Skin: denies: Rash Musculoskeletal: denies: Back pain Neurologic: denies: Headache PD PAST MEDICAL HISTORY - Past Medical History Past Medical History: Yes Cardiovascular: Hypertension Respiratory: None Neuro: Multiple sclerosis Endocrine/Autoimmune: Type 2 diabetes GI: Diverticulitis, Other : None HEENT: None Psych: None Musculoskeletal: None Derm: None - Past Surgical History Past Surgical History: Yes General: Cholecystectomy Ortho: Other - Present Medications Home Medications: Ambulatory Orders Medication Instructions Recorded Confirmed Losartan [Cozaar] 100 mg PO DAILY 01/02/15 04/21/18 amLODIPine [Norvasc] 10 mg PO DAILY 02/04/16 04/21/18 Cetirizine [ZyrTEC] 10 mg PO DAILY PRN 04/26/16 04/21/18 Baclofen 30 mg PO TID 02/09/17 04/21/18 Multivitamin [Theragran] 1 tab PO DAILY 02/09/17 04/21/18 Amantadine HCl [Amantadine] 100 mg PO BID 04/21/18 04/21/18 Ciprofloxacin HCl [Cipro] 500 mg PO BID #20 tablet 04/21/18 Fingolimod HCl [Gilenya] 0.5 mg PO DAILY 04/21/18 04/21/18 Gabapentin [Neurontin] 100 mg PO QID 04/21/18 04/21/18 Oxycodone HCl/Acetaminophen 1 - 2 each PO Q6H PRN #14 tablet 04/21/18 [Percocet 5-325 mg Tablet] Promethazine [Phenergan] 25 mg PO Q6H PRN #10 tab 04/21/18 metFORMIN [Glucophage] 1,000 mg PO BID 04/21/18 04/21/18 metroNIDAZOLE [Metronidazole] 500 mg PO BID #20 tablet 04/21/18 - Allergies Allergies/Adverse Reactions: Allergies Allergy/AdvReac Type Severity Reaction Status Date / Time No Known Drug Allergies Allergy Verified 04/21/18 21:51 - Social History Does the pt smoke?: Yes Smoking Status: Former smoker Does the pt drink ETOH?: Yes Does the pt have substance abuse?: No - Immunizations Immunizations are current?: Yes - POLST Patient has POLST: No POLST Status: Full Code PD ED PE NORMAL - Vitals Vital signs reviewed: Yes (Borderline hypertension initially.) - General General: Alert and oriented X 3, Well developed/nourished - HEENT HEENT: Atraumatic, Pharynx benign - Neck Neck: No adenopathy - Cardiac Cardiac: RRR - Respiratory Respiratory: No respiratory distress, Clear bilaterally - Abdomen Abdomen: Soft, Other (Tenderness to palpation in the left lower quadrant, without rebound or guarding.) - Back Back: No CVA TTP - Derm Derm: No rash - Extremities Extremities: No edema, No calf tenderness / cord - Neuro Neuro: Alert and oriented X 3, No motor deficit, Normal speech Results - Vitals Vitals: Vital Signs - 24 hr 04/21/18 04/21/18 04/21/18 08:37 11:03 13:12 Temperature 36.7 C 36.6 C 36.6 C Heart Rate 88 80 78 Respiratory 18 20 16 Rate Blood Pressure 143/87 H 120/80 114/79 O2 Saturation 99 95 98 Oxygen O2 Source Room air - Labs Labs: Laboratory Tests 04/21/18 04/21/18 04/21/18 08:53 09:07 09:07 WBC 9.4 RBC 4.65 L Hgb 13.5 L Hct 39.9 L MCV 85.9 MCH 28.9 MCHC 33.7 RDW 15.0 Plt Count 303 MPV 8.7 Neut # (Auto) 8.3 H Lymph # (Auto) 0.3 L [place] # (Auto) 0.7 Eos # (Auto) 0.1 Baso # (Auto) 0.0 Absolute Nucleated RBC 0.01 Nucleated RBC % 0.1 Sodium 138 Potassium 3.8 Chloride 102 Carbon Dioxide 23 Anion Gap 13.0 BUN 13 Creatinine 0.7 Estimated GFR (MDRD) 121 Glucose 123 H Calcium 9.2 Total Bilirubin 1.0 AST 31 ALT 72 H Alkaline Phosphatase 52 Total Protein 7.0 Albumin 4.1 Globulin 2.9 Albumin/Globulin Ratio 1.4 Lipase 28 Urine Color YELLOW Urine Clarity CLEAR Urine pH 6.5 Ur Specific [place] <=1.005 Urine Protein NEGATIVE Urine Glucose (UA) NEGATIVE Urine Ketones TRACE Urine Occult Blood NEGATIVE Urine Nitrite NEGATIVE Urine Bilirubin NEGATIVE Urine Urobilinogen 0.2 (NORMAL) Ur Leukocyte Esterase NEGATIVE Ur Microscopic Review NOT INDICATED Urine Culture Comments NOT INDICATED - Rads (name of study) CT abd/pelvis Radiology: Prelim report reviewed, EMP read contemporaneously, See rad report (Sigmoid diverticulitis without abscess formation, similar in appearance to 07/26/2015. Status post cholecystectomy, subcentimeter fat-containing umbilical hernia, and fatty liver. Otherwise negative.) PD MEDICAL DECISION MAKING - ED course Complexity details: reviewed old records, reviewed results, re-evaluated patient, considered differential, d/w patient, d/w family ED course: The patient's presentation is significant for sigmoid diverticulitis, which is visualized on CT scan of the abdomen. There is no evidence of abscess or perforation. Treatment in the emergency department included administration of Zosyn 3.375 g IV, and metronidazole 500 mg IV, fentanyl 50 mcg IV, and Zofran 4 mg IV. He is being discharged with prescriptions for Bactrim DS and metronidazole, as well as Percocet, 14 tablets. I discussed with him and his the diagnosis, expected course of illness, antibiotic therapy and outpatient follow-up, as well as potentially worrisome signs or symptoms that should prompt reevaluation in the emergency department. Departure - Departure Disposition: 01 Home, Self Care Clinical Impression: Diverticulitis of gastrointestinal tract Condition: Stable Instructions: ED Diverticulitis Follow-Up: Tico Garibay MD [Primary Care Provider] - Prescriptions: Ciprofloxacin HCl [Cipro] 500 mg PO BID #20 tablet metroNIDAZOLE [Metronidazole] 500 mg PO BID #20 tablet Oxycodone HCl/Acetaminophen [Percocet 5-325 mg Tablet] 1 - 2 each PO Q6H PRN #14 tablet PRN Reason: pain Promethazine [Phenergan] 25 mg PO Q6H PRN #10 tab PRN Reason: Nausea / Vomiting Comments: Take metronidazole and ciprofloxacin twice daily as prescribed. You can use Percocet as prescribed if needed for pain. You can use Phenergan as prescribed if needed for nausea. Follow-up with your primary physician within 1-2 weeks. Call to schedule an appointment. Return to the emergency department if you develop increasing abdominal pain, fever with shaking chills, persistent vomiting, or otherwise worsening symptoms. Discharge Date/Time: 04/21/18 13:34
[2018-04-21 13:12] VITALS: BP 114/79
== END 2018-04-21 13:34 | disposition home or self-care (01) ==
LOC: ED 08:34
DX: K57.90 Diverticulosis of intestine, part unspecified, without perforation or abscess without bleeding (principal); I10 Essential (primary) hypertension; E11.9 Type 2 diabetes mellitus without complications; G35 Multiple sclerosis
CPT/HCPCS: 74177; 80053; 81001; 81003; 83690; 85025; 87086; 99283

== ENCOUNTER 2018-04-21 21:44 | Emergency (ER) | payer MEDICARE, OTHER ==
[2018-04-21] MEDS ORDERED: SODIUM CHLORIDE 0.9% 1,000 ML IV ONE (22:10)
[2018-04-21 22:35] LABS: BASOPHILS % (AUTO) 0.2 %; EOSINOPHILS # (AUTO) 0.1 10^3/uL (0.0-0.7); EOSINOPHILS % (AUTO) 0.6 %; LYMPHOCYTES # (AUTO) 0.2 10^3/uL (1.5-3.5); LYMPHOCYTES % (AUTO) 2.1 %; MEAN CORPUSCULAR HEMOGLOBIN 29.9 pg (27.0-31.0); MEAN CORPUSCULAR HGB CONC 34.6 g/dL (32.0-36.0); MEAN CORPUSCULAR VOLUME 86.2 fL (80.0-94.0); MEAN PLATELET VOLUME 8.4 fL (7.4-11.4); MONOCYTES # (AUTO) 0.7 10^3/uL (0.0-1.0); MONOCYTES % (AUTO) 7.1 %; NEUTROPHILS # (AUTO) 9.1 10^3/uL (1.5-6.6); PLT - PLATELET COUNT 294 10^3/uL (130-450); RED BLOOD COUNT 4.35 10^6/uL (4.70-6.10); RED CELL DISTRIBUTION WIDTH 14.6 % (12.0-15.0); WHITE BLOOD COUNT 10.1 x10^3/uL (4.8-10.8)
--- NOTE | 2018-04-21 22:35 | ED Physician Documentation ---
PD HPI ABD PAIN - Stated complaint Stated Complaint: FEVER - Chief complaint Chief Complaint: Fever - History obtained from History obtained from: Patient, Family - History of Present Illness Timing - onset: How many days ago (2) Timing - duration: Days (2) Timing - details: Gradual onset, Still present Quality: Sharp, Pain Location: LLQ Improved by: Laying still, Meds Worsened by: Moving, Position, Palpation Associated symptoms: Nausea, Diarrhea. No: Vomiting Similar symptoms before: Diagnosis (diverticulitis) Recently seen: Emergency Dept - Additional information Additional information: 47-year-old male with 2 prior episodes of diverticulitis has had a prior episode of microperforation managed conservatively in the hospital and he has had us another episode in December of last year. He began to develop symptoms 2 days ago and they were mild this morning he awoken with significant pain and is come to the emergency department where he was evaluated by Dr. Scott. CT scan demonstrated presence of the sigmoid diverticulitis and the patient was given intravenous antibiotic and started on oral antibiotic. He is come back to the emergency department this evening with a fever. He states that his pain is not particularly worse but it is still present and he has developed some pink tinge to the mucousy diarrhea he is having. Review of Systems Constitutional: reports: Fever Eyes: denies: Decreased vision Ears: denies: Ear pain Nose: denies: Congestion Throat: denies: Sore throat Cardiac: denies: Chest pain / pressure, Palpitations Respiratory: denies: Dyspnea, Cough GI: reports: Abdominal Pain, Nausea, Diarrhea. denies: Vomiting : denies: Dysuria, Frequency Skin: denies: Rash Musculoskeletal: denies: Neck pain, Back pain, Extremity pain PD PAST MEDICAL HISTORY - Past Medical History Cardiovascular: Hypertension Respiratory: None Neuro: Multiple sclerosis Endocrine/Autoimmune: Type 2 diabetes GI: Diverticulitis, Other : None HEENT: None Psych: None Musculoskeletal: None Derm: None - Past Surgical History Past Surgical History: Yes General: Cholecystectomy Ortho: Other - Present Medications Home Medications: Ambulatory Orders Medication Instructions Recorded Confirmed Losartan [Cozaar] 100 mg PO DAILY 01/02/15 04/21/18 amLODIPine [Norvasc] 10 mg PO DAILY 02/04/16 04/21/18 Cetirizine [ZyrTEC] 10 mg PO DAILY PRN 04/26/16 04/21/18 Baclofen 30 mg PO TID 02/09/17 04/21/18 Multivitamin [Theragran] 1 tab PO DAILY 02/09/17 04/21/18 Amantadine HCl [Amantadine] 100 mg PO BID 04/21/18 04/21/18 Ciprofloxacin HCl [Cipro] 500 mg PO BID #20 tablet 04/21/18 Fingolimod HCl [Gilenya] 0.5 mg PO DAILY 04/21/18 04/21/18 Gabapentin [Neurontin] 100 mg PO QID 04/21/18 04/21/18 Oxycodone HCl/Acetaminophen 1 - 2 each PO Q6H PRN #14 tablet 04/21/18 [Percocet 5-325 mg Tablet] Promethazine [Phenergan] 25 mg PO Q6H PRN #10 tab 04/21/18 metFORMIN [Glucophage] 1,000 mg PO BID 04/21/18 04/21/18 metroNIDAZOLE [Metronidazole] 500 mg PO BID #20 tablet 04/21/18 - Allergies Allergies/Adverse Reactions: Allergies Allergy/AdvReac Type Severity Reaction Status Date / Time No Known Drug Allergies Allergy Verified 04/21/18 21:51 - Social History Does the pt smoke?: Yes Smoking Status: Former smoker Does the pt drink ETOH?: Yes Does the pt have substance abuse?: No - Immunizations Immunizations are current?: Yes - POLST Patient has POLST: No POLST Status: Full Code PD ED PE NORMAL - Vitals Vital signs reviewed: Yes (tachy ) - General General: Alert and oriented X 3, Well developed/nourished, Other (The patient looks flush and tired. Hair has had marked diaphoresis. 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, No motor deficit, No sensory deficit, Normal speech Eye Opening: Spontaneous Motor: Obeys Commands Verbal: Oriented GCS Score: 15 - Psych Psych: Normal mood, Normal affect Results - Vitals Vitals: Vital Signs - 24 hr 04/21/18 04/21/18 04/22/18 21:47 23:20 00:07 Temperature 37.3 C 38.2 C H 37.3 C Heart Rate 107 H 93 91 Respiratory 18 18 18 Rate Blood Pressure 118/79 109/74 112/71 O2 Saturation 95 94 94 Oxygen O2 Source Room air - Labs Labs: Laboratory Tests 04/21/18 04/21/18 04/21/18 22:24 22:24 22:24 WBC 10.1 RBC 4.35 L Hgb 13.0 L Hct 37.5 L MCV 86.2 MCH 29.9 MCHC 34.6 RDW 14.6 Plt Count 294 MPV 8.4 Neut # (Auto) 9.1 H Lymph # (Auto) 0.2 L [place] # (Auto) 0.7 Eos # (Auto) 0.1 Baso # (Auto) 0.0 Absolute Nucleated RBC 0.01 Nucleated RBC % 0.1 Sodium 139 Potassium 3.4 L Chloride 103 Carbon Dioxide 25 Anion Gap 11.0 BUN 16 Creatinine 1.1 Estimated GFR (MDRD) 72 L Glucose 132 H Lactic Acid Calcium 8.8 Total Bilirubin 0.7 AST 28 ALT 67 H Alkaline Phosphatase 51 Troponin I < 0.04 Total Protein 6.5 L Albumin 3.8 Globulin 2.7 Albumin/Globulin Ratio 1.4 Lipase 26 04/21/18 22:24 WBC RBC Hgb Hct MCV MCH MCHC RDW Plt Count MPV Neut # (Auto) Lymph # (Auto) [place] # (Auto) Eos # (Auto) Baso # (Auto) Absolute Nucleated RBC Nucleated RBC % Sodium Potassium Chloride Carbon Dioxide Anion Gap BUN Creatinine Estimated GFR (MDRD) Glucose Lactic Acid 0.8 Calcium Total Bilirubin AST ALT Alkaline Phosphatase Troponin I Total Protein Albumin Globulin Albumin/Globulin Ratio Lipase Procedures - IVC sono (time) 2209 Bedside IVC sono: IVC measures (cm) (1.12), IVC collapsed c insp (cm) (complete), Dehydration (est 1+ liter deficit) PD MEDICAL DECISION MAKING - ED course Complexity details: reviewed old records, reviewed results, re-evaluated patient, considered differential, d/w patient, d/w family ED course: 47-year-old male with a history of diverticulitis and a prior microperforation has come back to the emergency department this evening after being seen here in the morning and started on antibiotic. He is returned because of a fever and not feeling well and persistence of pain. He is also developed some pink tinge to his diarrhea. On physical exam he does have some mild suprapubic tenderness he does not have peritonitis and his white blood cell count is normal again. Here in the emerge department he is administered a liter of saline and 30 mg of Toradol and feels some improved. With shared decision making the patient would like to go home and I have discussed with him reasons to come back to the emergency department for failure of treatment. Specifically to look for persistence of fever increasing pain and new symptoms. Departure - Departure Disposition: 01 Home, Self Care Clinical Impression: Diverticulitis Condition: Stable Instructions: ED Diverticulitis Follow-Up: Tico Garibay MD [Primary Care Provider] - Comments: On reevaluation this evening your white blood cell count is again normal and you appear to have responded to our treatments. Continue to take your antibiotics as prescribed and expect improvement over the next 24-48 hours. If you have persistent fever, worsening of pain or development of new or concerning symptoms do not hesitate to return to the emergency department for reevaluation. Failure of your current regimen would indicate a reason for hospitalization.
[2018-04-21 22:46] LABS: ALBUMIN 3.8 g/dL (3.2-5.5); ALBUMIN/GLOBULIN RATIO 1.4 (1.0-2.2); BILIRUBIN,TOTAL 0.7 mg/dL (0.2-1.0); CALCIUM 8.8 mg/dL (8.5-10.3); CREATININE 1.1 mg/dL (0.6-1.2); TOTAL PROTEIN 6.5 g/dL (6.7-8.2)
[2018-04-21] MEDS ORDERED: KETOROLAC 30 MG/ML VIAL IVP STA (23:23)
[2018-04-21] MEDS ORDERED: POTASSIUM BICARB 25 MEQ TABLET PO STA (23:33)
[2018-04-22 01:36] VITALS: BP 111/76
== END 2018-04-22 01:38 | disposition home or self-care (01) ==
LOC: ED 21:44
DX: K57.92 Diverticulitis of intestine, part unspecified, without perforation or abscess without bleeding (principal); E86.0 Dehydration; E11.9 Type 2 diabetes mellitus without complications; I10 Essential (primary) hypertension; G35 Multiple sclerosis; Z79.84 Long term (current) use of oral hypoglycemic drugs; Z87.891 Personal history of nicotine dependence
CPT/HCPCS: 36415; 74177; 80053; 81003; 83605; 83690; 84484; 85025; 87040; 96365; 96367; 96374; 96375; 96376; 99283; 99284; A9270; Q9967; 81001; 87086

== ENCOUNTER 2018-05-08 18:11 | Emergency (ER) | payer MEDICARE, OTHER ==
[2018-05-08 19:12] LABS: BASOPHILS % (AUTO) 0.5 %; EOSINOPHILS # (AUTO) 0.1 10^3/uL (0.0-0.7); EOSINOPHILS % (AUTO) 1.1 %; HGB - HEMOGLOBIN 13.8 g/dL (14.0-18.0); LYMPHOCYTES # (AUTO) 0.1 10^3/uL (1.5-3.5); LYMPHOCYTES % (AUTO) 2.8 %; MEAN CORPUSCULAR HEMOGLOBIN 28.6 pg (27.0-31.0); MEAN CORPUSCULAR HGB CONC 33.4 g/dL (32.0-36.0); MEAN CORPUSCULAR VOLUME 85.7 fL (80.0-94.0); MEAN PLATELET VOLUME 8.7 fL (7.4-11.4); MONOCYTES # (AUTO) 0.3 10^3/uL (0.0-1.0); MONOCYTES % (AUTO) 5.5 %; NEUTROPHILS # (AUTO) 4.8 10^3/uL (1.5-6.6); NEUTROPHILS % (AUTO) 90.1 %; PLT - PLATELET COUNT 340 10^3/uL (130-450); RED BLOOD COUNT 4.84 10^6/uL (4.70-6.10); RED CELL DISTRIBUTION WIDTH 15.1 % (12.0-15.0); WHITE BLOOD COUNT 5.3 x10^3/uL (4.8-10.8)
[2018-05-08 19:13] LABS: ALBUMIN 4.5 g/dL (3.2-5.5); ALBUMIN/GLOBULIN RATIO 1.6 (1.0-2.2); BILIRUBIN,TOTAL 0.2 mg/dL (0.2-1.0); CALCIUM 9.4 mg/dL (8.5-10.3); CREATININE 0.8 mg/dL (0.6-1.2); TOTAL PROTEIN 7.4 g/dL (6.7-8.2)
[2018-05-08 20:01] LABS: BILIRUBIN,URINE NEGATIVE (NEGATIVE); GLUCOSE, URINE (UA) NEGATIVE (NEGATIVE); KETONES,URINE (UA) NEGATIVE (NEGATIVE); LEUKOCYTE ESTERASE, URINE NEGATIVE (NEGATIVE); NITRITE,URINE NEGATIVE (NEGATIVE); OCCULT BLOOD,URINE NEGATIVE (NEGATIVE); PH,URINE 6.5 PH (5.0-7.5); PROTEIN,URINE NEGATIVE (NEGATIVE); UROBILINOGEN,URINE 0.2 (NORMAL) E.U./dL (NORMAL)
[2018-05-08 20:08] LABS: CLARITY,URINE CLEAR (CLEAR)
--- NOTE | 2018-05-08 21:02 | ED Physician Documentation ---
PD HPI ABD PAIN - Stated complaint Stated Complaint: UPPER ABD PX - Chief complaint Chief Complaint: Abd Pain - History obtained from History obtained from: Patient - History of Present Illness Timing - onset: How many hours ago (few), Today Timing - duration: Hours (few) Timing - details: Abrupt onset, Still present, Waxing and waning Quality: Cramping, Pain Location: RUQ, Epigastric Radiation: No: Chest, Lower back, Upper back Worsened by: No: Breathing, Position, Palpation Associated symptoms: Nausea. No: Vomiting, Diarrhea, Constipation, Loss of appetite Similar symptoms before: Diagnosis (he says it feels similar to gallbladder pain, but is postCCY) Recently seen: Not recently seen Review of Systems Constitutional: denies: Fever, Chills Nose: denies: Rhinorrhea / runny nose, Congestion Throat: denies: Sore throat Cardiac: denies: Chest pain / pressure, Palpitations Respiratory: denies: Dyspnea, Cough GI: reports: Abdominal Pain, Nausea. denies: Abdominal Swelling, Vomiting, Diarrhea : denies: Dysuria, Frequency Skin: denies: Rash, Lesions PD PAST MEDICAL HISTORY - Past Medical History Cardiovascular: Hypertension Respiratory: None Neuro: Multiple sclerosis Endocrine/Autoimmune: Type 2 diabetes GI: Diverticulitis, Other : None HEENT: None Psych: None Musculoskeletal: None Derm: None - Past Surgical History Past Surgical History: Yes General: Cholecystectomy Ortho: Other - Present Medications Home Medications: Ambulatory Orders Medication Instructions Recorded Confirmed Losartan [Cozaar] 100 mg PO DAILY 01/02/15 04/21/18 amLODIPine [Norvasc] 10 mg PO DAILY 02/04/16 04/21/18 Cetirizine [ZyrTEC] 10 mg PO DAILY PRN 04/26/16 04/21/18 Baclofen 30 mg PO TID 02/09/17 04/21/18 Multivitamin [Theragran] 1 tab PO DAILY 02/09/17 04/21/18 Amantadine HCl [Amantadine] 100 mg PO BID 04/21/18 04/21/18 Fingolimod HCl [Gilenya] 0.5 mg PO DAILY 04/21/18 04/21/18 Gabapentin [Neurontin] 100 mg PO QID 04/21/18 04/21/18 metFORMIN [Glucophage] 750 mg PO DAILY 04/21/18 04/21/18 Famotidine 20 mg PO DAILY #20 tablet 05/08/18 Hydrocodone/Acetaminophen [[place] 1 each PO Q6H PRN #15 tablet 05/08/18 5-325 Tablet] Ondansetron Odt [Zofran] 4 mg TL Q6H PRN #10 tablet 05/08/18 - Allergies Allergies/Adverse Reactions: Allergies Allergy/AdvReac Type Severity Reaction Status Date / Time No Known Drug Allergies Allergy Verified 05/08/18 18:31 - Social History Does the pt smoke?: Yes Smoking Status: Current every day smoker Does the pt drink ETOH?: Yes Does the pt have substance abuse?: No - Immunizations Immunizations are current?: Yes - POLST Patient has POLST: No POLST Status: Full Code PD ED PE NORMAL - Vitals Vital signs reviewed: Yes - General General: Alert and oriented X 3, No acute distress, Well developed/nourished - HEENT HEENT: Moist mucous membranes, Pharynx benign - Neck Neck: Supple, no meningeal sign, No adenopathy - Cardiac Cardiac: RRR, No murmur - Respiratory Respiratory: Clear bilaterally - Abdomen Abdomen: Normal bowel sounds, Soft, Non distended, No organomegaly, Other (tender in epigastric and RUQ area, with local guarding but no rebound, percussion nor referred tenderness. ) Results - Vitals Vitals: Oxygen O2 Source Room air - Labs Labs: Laboratory Tests 05/08/18 05/08/18 05/08/18 18:50 18:50 19:55 WBC 5.3 RBC 4.84 Hgb 13.8 L Hct 41.4 L MCV 85.7 MCH 28.6 MCHC 33.4 RDW 15.1 H Plt Count 340 MPV 8.7 Neut # (Auto) 4.8 Lymph # (Auto) 0.1 L [place] # (Auto) 0.3 Eos # (Auto) 0.1 Baso # (Auto) 0.0 Absolute Nucleated RBC 0.01 Nucleated RBC % 0.1 Sodium 139 Potassium 3.5 Chloride 104 Carbon Dioxide 26 Anion Gap 9.0 BUN 14 Creatinine 0.8 Estimated GFR (MDRD) 104 Glucose 173 H Calcium 9.4 Total Bilirubin 0.2 AST 43 H ALT 93 H Alkaline Phosphatase 56 Total Protein 7.4 Albumin 4.5 Globulin 2.9 Albumin/Globulin Ratio 1.6 Lipase 27 Urine Color YELLOW Urine Clarity CLEAR Urine pH 6.5 Ur Specific [place] 1.010 Urine Protein NEGATIVE Urine Glucose (UA) NEGATIVE Urine Ketones NEGATIVE Urine Occult Blood NEGATIVE Urine Nitrite NEGATIVE Urine Bilirubin NEGATIVE Urine Urobilinogen 0.2 (NORMAL) Ur Leukocyte Esterase NEGATIVE Ur Microscopic Review NOT INDICATED Urine Culture Comments NOT INDICATED - Rads (name of study) upper abd U/S Radiology: Prelim report reviewed (CBD 7 mm, normal. No other acute findings. ), EMP read contemporaneously, See rad report PD MEDICAL DECISION MAKING - ED course Complexity details: reviewed results, re-evaluated patient (not considerable improvement with GI cocktail. Not clear the cause of the symptoms.), considered differential, d/w patient Departure - Departure Disposition: 01 Home, Self Care Clinical Impression: Abdominal pain Qualifiers: Abdominal location: right upper quadrant Qualified Code(s): R10.11 - Right upper quadrant pain Condition: Stable Record reviewed to determine appropriate education?: Yes Instructions: ED Abdominal Pain Unkn Cause Follow-Up: Tico Garibay MD [Primary Care Provider] - Prescriptions: Famotidine 20 mg PO DAILY #20 tablet Hydrocodone/Acetaminophen [[place] 5-325 Tablet] 1 each PO Q6H PRN #15 tablet PRN Reason: Pain Ondansetron Odt [Zofran] 4 mg TL Q6H PRN #10 tablet PRN Reason: Nausea / Vomiting Comments: Your blood count as well as blood tests for pancreas and liver look normal. Your ultrasound does not show any dilation of the common bile duct. I presume you are having some irritation of the stomach or initial outlet from the stomach into the small intestine (duodenum). I would have you take some acid reducing medicine such as famotidine daily for the next week or 2. Use some antacid such as Maalox or Mylanta periodically if needed for discomfort. Use Tylenol if needed for pain and add hydrocodone if needed for worse pain. Ondansetron if needed for nausea. Recheck with your primary care if not improved over the next couple of days however. Return sooner if worsening pain, fevers, vomiting, bloody stool, other concerns. Discharge Date/Time: 05/08/18 23:37
[2018-05-08] MEDS ORDERED: LIDOCAINE VISCOUS 2% 15 ML UDC MM STA (21:17)
[2018-05-08] MEDS ORDERED: MAG HYDROX/AL HYDROX/SIMETH 30 ML UDC PO STA (21:18)
[2018-05-08] MEDS ORDERED: MORPHINE 10 MG/ML VIAL IVP STA (21:18)
[2018-05-08] MEDS ORDERED: ONDANSETRON 4 MG/2 ML VIAL IVP STA (21:39)
--- NOTE | 2018-05-08 23:12 | Ultrasound Report ---
Reason: RUQ pain, post CCY, eval CBD Procedure Date: 05/08/2018 Accession Number: [id number] / [id number] Procedure: US - Abdomen Limited CPT Code: FULL RESULT: EXAM: ABDOMEN ULTRASOUND LIMITED, RUQ EXAM DATE: 05/08/2018 10:40 PM. CLINICAL HISTORY: Right quadrant pain. COMPARISON: ABDOMEN/PELVIS W/ 04/21/2018 10:12 AM. TECHNIQUE: Real-time scanning was performed with static images obtained. FINDINGS: Liver: Normal in size . Hyperechoic echotexture. 16.1 cm. Main portal vein flow: Hepatopetal. Gallbladder: Surgically absent. Biliary System: CBD measures 7 mm. Dilated. Other: The visualized pancreas and right kidney are unremarkable. No free fluid. IMPRESSION: 1. Cholecystectomy, with dilated common bile duct. 2. Hepatic steatosis. RADIA
[2018-05-08] MEDS ORDERED: HYDROcod/ACET 5/325 Prepack 4 PO STA (23:13)
[2018-05-08] MEDS ORDERED: KETOROLAC 15 MG/ML VIAL IVP STA (23:13)
[2018-05-08 23:33] VITALS: BP 119/83
== END 2018-05-08 23:37 | disposition home or self-care (01) ==
LOC: ED 18:11
DX: R10.11 Right upper quadrant pain (principal); I10 Essential (primary) hypertension; E11.9 Type 2 diabetes mellitus without complications; F17.200 Nicotine dependence, unspecified, uncomplicated; Z79.84 Long term (current) use of oral hypoglycemic drugs
CPT/HCPCS: 36415; 76705; 80053; 81003; 83690; 85025; 93005; 96374; 96375; 99283; A9270; 81001; 87086

== ENCOUNTER 2019-08-19 18:31 | Emergency (ER) | payer MEDICARE, OTHER ==
[2019-08-19 18:57] LABS: BASOPHILS % (AUTO) 0.6 %; EOSINOPHILS # (AUTO) 0.1 10^3/uL (0.0-0.7); EOSINOPHILS % (AUTO) 1.4 %; HGB - HEMOGLOBIN 13.3 g/dL (14.0-18.0); LYMPHOCYTES # (AUTO) 0.3 10^3/uL (1.5-3.5); LYMPHOCYTES % (AUTO) 4.7 %; MEAN CORPUSCULAR HEMOGLOBIN 28.5 pg (27.0-31.0); MEAN CORPUSCULAR HGB CONC 32.8 g/dL (32.0-36.0); MEAN CORPUSCULAR VOLUME 86.9 fL (80.0-94.0); MONOCYTES # (AUTO) 0.6 10^3/uL (0.0-1.0); MONOCYTES % (AUTO) 7.9 %; NEUTROPHILS % (AUTO) 85.1 %; PLT - PLATELET COUNT 280 10^3/uL (130-450); RED BLOOD COUNT 4.67 10^6/uL (4.70-6.10); RED CELL DISTRIBUTION WIDTH 14.1 % (12.0-15.0); WHITE BLOOD COUNT 7.1 x10^3/uL (4.8-10.8)
[2019-08-19] MEDS ORDERED: IOVERSOL 320 100 ML VIAL IVP ONE ×2 (19:02→20:23)
--- NOTE | 2019-08-19 19:08 | ED Physician Documentation ---
History of Present Illness - Stated complaint Stated Complaint: ABD PX - Chief complaint Chief Complaint: Abd Pain - History obtained from History obtained from: Patient, Family - History of Present Illness Timing: Today Pain level max: 4 Pain level now: 3 - Additonal information Additional information: 48-year-old male presents the emergency department with left lower quadrant abdominal pain starting today. History of diverticulitis in the past. States feels similar. Has had some constipation over the last 2 days as well. No fevers. Occasional nausea, no vomiting. Does have a history of multiple sclerosis. No rectal bleeding. No blood in the stool. Review of Systems Constitutional: denies: Fever, Chills Cardiac: denies: Chest pain / pressure Respiratory: denies: Cough GI: denies: Hematemesis, Bloody / black stool Skin: denies: Rash Musculoskeletal: denies: Neck pain, Back pain Neurologic: denies: Headache PD PAST MEDICAL HISTORY - Past Medical History Past Medical History: Yes Cardiovascular: Hypertension Respiratory: None Neuro: Multiple sclerosis Endocrine/Autoimmune: Type 2 diabetes GI: Diverticulitis, Other : None HEENT: None Psych: None Musculoskeletal: None Derm: None - Past Surgical History Past Surgical History: Yes General: Cholecystectomy Ortho: Other - Present Medications Home Medications: Ambulatory Orders Medication Instructions Recorded Confirmed Losartan [Cozaar] 100 mg PO DAILY 01/02/15 08/19/19 amLODIPine [Norvasc] 10 mg PO DAILY 02/04/16 08/19/19 Cetirizine [ZyrTEC] 10 mg PO DAILY PRN 04/26/16 08/19/19 Baclofen 30 mg PO TID 02/09/17 08/19/19 Multivitamin [Theragran] 1 tab PO DAILY 02/09/17 08/19/19 Amantadine HCl [Amantadine] 100 mg PO BID 04/21/18 08/19/19 Fingolimod HCl [Gilenya] 0.5 mg PO DAILY 04/21/18 08/19/19 Gabapentin [Neurontin] 200 mg PO DAILY 04/21/18 08/19/19 Gabapentin [Neurontin] 300 mg PO BIDWM 08/19/19 08/19/19 Metformin HCl [Metformin HCl ER] 750 mg PO DAILY 08/19/19 08/19/19 diphenhydrAMINE [Benadryl] 50 mg PO DAILY PM 08/19/19 08/19/19 - Allergies Allergies/Adverse Reactions: Allergies Allergy/AdvReac Type Severity Reaction Status Date / Time No Known Drug Allergies Allergy Verified 08/19/19 18:46 - Social History Does the pt smoke?: Yes Smoking Status: Former smoker Does the pt drink ETOH?: Yes Does the pt have substance abuse?: No Substance Use and Type: Marijuana - Immunizations Immunizations are current?: Yes - POLST Patient has POLST: No POLST Status: Full Code PD ED PE NORMAL - Vitals Vital signs reviewed: Yes - General General: Alert and oriented X 3, No acute distress - HEENT HEENT: Moist mucous membranes - Neck Neck: Supple, no meningeal sign - Cardiac Cardiac: RRR - Respiratory Respiratory: No respiratory distress, Clear bilaterally - Abdomen Abdomen: Soft, Non tender, Non distended - Derm Derm: Warm and dry - Neuro Neuro: Alert and oriented X 3 - Psych Psych: Normal mood, Normal affect Results - Vitals Vitals: Vital Signs - 24 hr 08/19/19 08/19/19 08/19/19 18:35 19:13 20:25 Temperature 37.1 C Heart Rate 86 82 81 Respiratory 20 18 18 Rate Blood Pressure 148/91 H 114/81 H 118/70 O2 Saturation 98 96 96 08/19/19 21:01 Temperature Heart Rate 68 Respiratory 18 Rate Blood Pressure 107/67 O2 Saturation 98 Oxygen O2 Source Room air - Labs Labs: Laboratory Tests 08/19/19 08/19/19 08/19/19 18:45 18:45 19:05 WBC 7.1 RBC 4.67 L Hgb 13.3 L Hct 40.6 L MCV 86.9 MCH 28.5 MCHC 32.8 RDW 14.1 Plt Count 280 MPV 10.0 Neut # (Auto) 6.0 Lymph # (Auto) 0.3 L [place] # (Auto) 0.6 Eos # (Auto) 0.1 Baso # (Auto) 0.0 Absolute Nucleated RBC 0.00 Nucleated RBC % 0.0 Sodium 139 Potassium 3.4 L Chloride 104 Carbon Dioxide 26 Anion Gap 9.0 BUN 17 Creatinine 0.7 Estimated GFR (MDRD) 120 Glucose 140 H Calcium 9.2 Total Bilirubin 0.5 AST 22 ALT 40 Alkaline Phosphatase 52 Total Protein 6.9 Albumin 4.1 Globulin 2.8 Albumin/Globulin Ratio 1.5 Lipase 30 Urine Color YELLOW Urine Clarity CLEAR Urine pH 6.5 Ur Specific [place] 1.020 Urine Protein NEGATIVE Urine Glucose (UA) NEGATIVE Urine Ketones NEGATIVE Urine Occult Blood NEGATIVE Urine Nitrite NEGATIVE Urine Bilirubin NEGATIVE Urine Urobilinogen 0.2 (NORMAL) Ur Leukocyte Esterase NEGATIVE Ur Microscopic Review NOT INDICATED Urine Culture Comments NOT INDICATED - Rads (name of study) CT abdomen pelvis Radiology: Prelim report reviewed, EMP read contemporaneously, See rad report (1. Diverticulosis without diverticulitis. 2. Small fat-containing umbilical hernia. There is mild fat stranding in the hernia sac. 3. Mild hepatic steatosis. 4. Small hiatal hernia. ) PD MEDICAL DECISION MAKING - ED course Complexity details: reviewed results, re-evaluated patient, considered differential, d/w patient ED course: Unclear etiology of his abdominal pain. He has had constipation with small pellet-like stools recently. We will trial him on magnesium citrate. No acute findings on CT scan to explain his symptoms. No significant lab abnormalities. Tolerating p.o. without difficulty. Patient counseled regarding signs and symptoms for which I believe and urgent re-evaluation would be necessary. Patient with good understanding of and agreement to plan and is comfortable going home at this time This document was made in part using voice recognition software. While efforts are made to proofread this document, sound alike and grammatical errors may occur. Departure - Departure Disposition: 01 Home, Self Care Clinical Impression: Abdominal pain Qualifiers: Abdominal location: generalized Qualified Code(s): R10.84 - Generalized abdominal pain Constipation Qualifiers: Constipation type: unspecified constipation type Qualified Code(s): K59.00 - Constipation, unspecified Condition: Good Instructions: ED Constipation Follow-Up: Tico Garibay MD [Primary Care Provider] - As Needed Comments: Drink plenty of water. Return if you worsen. Follow up with your doctor for further care. You were given magnesium citrate tonight. Discharge Date/Time: 08/19/19 21:11
[2019-08-19 19:10] LABS: ALBUMIN 4.1 g/dL (3.2-5.5); ALBUMIN/GLOBULIN RATIO 1.5 (1.0-2.2); BILIRUBIN,TOTAL 0.5 mg/dL (0.2-1.0); CALCIUM 9.2 mg/dL (8.5-10.3); CREATININE 0.7 mg/dL (0.6-1.2); TOTAL PROTEIN 6.9 g/dL (6.7-8.2)
[2019-08-19 19:21] LABS: BILIRUBIN,URINE NEGATIVE (NEGATIVE); GLUCOSE, URINE (UA) NEGATIVE (NEGATIVE); KETONES,URINE (UA) NEGATIVE (NEGATIVE); LEUKOCYTE ESTERASE, URINE NEGATIVE (NEGATIVE); NITRITE,URINE NEGATIVE (NEGATIVE); OCCULT BLOOD,URINE NEGATIVE (NEGATIVE); PH,URINE 6.5 PH (5.0-7.5); PROTEIN,URINE NEGATIVE (NEGATIVE); UROBILINOGEN,URINE 0.2 (NORMAL) E.U./dL (NORMAL)
[2019-08-19 19:22] LABS: CLARITY,URINE CLEAR (CLEAR)
--- NOTE | 2019-08-19 20:50 | CT Report ---
PROCEDURE: Abdomen/Pelvis W INDICATIONS: LLQ Abdominal pain, diverticulitis suspected CONTRAST: IV CONTRAST: Optiray 320 ml: 100 PO CONTRAST: *NO PO CONTRAST TECHNIQUE: After the administration of oral and intravenous contrast, 5 mm thick sections acquired from the diap hragms to the symphysis. 5 mm thick coronal and sagittal reformats were acquired. For radiation dos e reduction, the following was used: automated exposure control, adjustment of mA and/or kV accordin g to patient size. COMPARISON: Ultrasound abdomen 05/08/2018. CT abdomen pelvis, 04/21/2018. FINDINGS: Image quality: Excellent. ABDOMEN: Lung bases: Lung bases are clear. Heart size is normal. Small hiatal hernia. Solid organs: Mild hepatic steatosis. Liver and spleen are normal in size and enhancement. Gallblad janett is surgically absent Biliary system is non dilated. Pancreas enhances normally. No adrenal nod ules. Kidneys demonstrate normal size and enhancement, without hydronephrosis. Peritoneum and bowel: There are typical diverticula in sigmoid colon. No CT findings to suggest acut e diverticulitis. Bowel loops demonstrate normal wall thickness and caliber. No free fluid or air. Nodes and vessels: No retroperitoneal or mesenteric adenopathy by size criteria. Aorta and inferior vena cava are normal in size. Miscellaneous: There is a small umbilical hernia containing fat. There is mild stranding in the herni a sac. PELVIS: Genitourinary: Bladder wall thickness is normal. Miscellaneous: No inguinal adenopathy. Small fat-containing inguinal hernias are seen bilaterally. Bones: No suspicious bony lesions. No vertebral body compression fractures. IMPRESSION: 1. Diverticulosis without diverticulitis. 2. Small fat-containing umbilical hernia. There is mild fat stranding in the hernia sac. 3. Mild hepatic steatosis. 4. Small hiatal hernia. Reviewed by: Mey Renteria MD on 08/19/2019 8:49 PM PDT Approved by: Mey Renteria MD on 08/19/2019 8:49 PM PDT Station ID: [id number]
[2019-08-19] MEDS ORDERED: MAGNESIUM CITRATE 296 ML BOTTLE PO STA (21:01)
[2019-08-19 21:02] VITALS: BP 107/67
== END 2019-08-19 21:11 | disposition home or self-care (01) ==
LOC: ED 18:31
DX: R10.84 Generalized abdominal pain (principal); K59.00 Constipation, unspecified; Z87.19 Personal history of other diseases of the digestive system; G35 Multiple sclerosis; I10 Essential (primary) hypertension; E11.9 Type 2 diabetes mellitus without complications; Z79.84 Long term (current) use of oral hypoglycemic drugs; Z87.891 Personal history of nicotine dependence; K42.9 Umbilical hernia without obstruction or gangrene; K44.9 Diaphragmatic hernia without obstruction or gangrene; K76.0 Fatty (change of) liver, not elsewhere classified
CPT/HCPCS: 74177; 80053; 81003; 83690; 85025; 99284; A9270; Q9967; 81001; 87086

== ENCOUNTER 2019-10-26 07:24 | Emergency (ER) | payer MEDICARE, OTHER ==
[2019-10-26] MEDS ORDERED: SODIUM CHLORIDE 0.9% 1,000 ML IV STA (07:43)
[2019-10-26] MEDS ORDERED: ACETAMINOPHEN 325 MG TABLET PO STA (08:01)
--- NOTE | 2019-10-26 08:09 | ED Physician Documentation ---
History of Present Illness - Stated complaint Stated Complaint: FEVER/CHEST PX - Chief complaint Chief Complaint: Fever - History obtained from History obtained from: Patient - Additonal information Additional information: Patient comes emergency department complaining of fever that started last night. He states he began to feel chills and found that he had a temperature about 101. Patient states it has fluctuated from 99-1 02 and that he was febrile before leaving to come here. Patient states that he has had a mild dry cough. He has chronic chest tightness from his multiple sclerosis and cannot really tell if it is worse than usual. Patient states he is also getting some stabbing chest pains on the right occasionally. No nausea or vomiting. No abdominal pain. No diarrhea or dysuria. No back pain that is new. Patient states that his ears have not been hurting, but his right ear canal feels slightly smaller today than usual. Patient denies any sick contacts. He states he was feeling completely well before the symptoms started yesterday evening. No other complaints at this time. Patient has no other medical problems besides his multiple sclerosis. He is currently on fingolimod, an immunosuppressive drug, for his MS. Review of Systems Ten Systems: 10 systems reviewed and negative Constitutional: reports: Fever Eyes: reports: Reviewed and negative Ears: reports: Reviewed and negative Nose: reports: Reviewed and negative Throat: reports: Reviewed and negative Cardiac: reports: Reviewed and negative Respiratory: reports: Cough GI: reports: Reviewed and negative : reports: Reviewed and negative Skin: reports: Reviewed and negative Musculoskeletal: reports: Reviewed and negative Neurologic: reports: Reviewed and negative Psychiatric: reports: Reviewed and negative Endocrine: reports: Reviewed and negative Immunocompromised: reports: Reviewed and negative PD PAST MEDICAL HISTORY - Past Medical History Cardiovascular: Hypertension Respiratory: None Neuro: Multiple sclerosis Endocrine/Autoimmune: Type 2 diabetes GI: Diverticulitis, Other : None HEENT: None Psych: None Musculoskeletal: None Derm: None - Past Surgical History Past Surgical History: Yes General: Cholecystectomy Ortho: Other - Present Medications Home Medications: Ambulatory Orders Medication Instructions Recorded Confirmed Losartan [Cozaar] 100 mg PO DAILY 01/02/15 08/19/19 amLODIPine [Norvasc] 10 mg PO DAILY 02/04/16 08/19/19 Cetirizine [ZyrTEC] 10 mg PO DAILY PRN 04/26/16 08/19/19 Baclofen 30 mg PO TID 02/09/17 08/19/19 Multivitamin [Theragran] 1 tab PO DAILY 02/09/17 08/19/19 Amantadine HCl [Amantadine] 100 mg PO BID 04/21/18 08/19/19 Fingolimod HCl [Gilenya] 0.5 mg PO DAILY 04/21/18 08/19/19 Gabapentin [Neurontin] 200 mg PO DAILY 04/21/18 08/19/19 Gabapentin [Neurontin] 300 mg PO BIDWM 08/19/19 08/19/19 Metformin HCl [Metformin HCl ER] 750 mg PO DAILY 08/19/19 08/19/19 diphenhydrAMINE [Benadryl] 50 mg PO DAILY PM 08/19/19 08/19/19 - Allergies Allergies/Adverse Reactions: Allergies Allergy/AdvReac Type Severity Reaction Status Date / Time No Known Drug Allergies Allergy Verified 08/19/19 18:46 - Social History Does the pt smoke?: Yes Smoking Status: Former smoker Does the pt drink ETOH?: Yes Does the pt have substance abuse?: No - Immunizations Immunizations are current?: Yes - POLST Patient has POLST: No POLST Status: Full Code PD ED PE NORMAL - Vitals Vital signs reviewed: Yes - General General: Alert and oriented X 3, No acute distress (Patient is very well- appearing, conversant and alert.), Well developed/nourished - HEENT HEENT: Atraumatic, PERRL, EOMI, Ears normal, Moist mucous membranes, Pharynx benign, Dentition benign - Neck Neck: Supple, no meningeal sign - Cardiac Cardiac: RRR, No murmur, Strong equal pulses - Respiratory Respiratory: No respiratory distress, Clear bilaterally - Abdomen Abdomen: Soft, Non tender, Non distended - Back Back: No CVA TTP - Derm Derm: Normal color, No rash, Other (Skin is dry, feels hotter than normal temperature.) - Extremities Extremities: No deformity, No edema, No calf tenderness / cord - Neuro Neuro: Alert and oriented X 3, 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 No: T wave inversion Compare to prior EKG: Old EKG unavailable Computer interpretation: Agree with computer - Labs Labs: Microbiology 10/26/19 08:36 Blood Culture - Preliminary Blood - Right Arm NO GROWTH AFTER 2 DAYS 10/26/19 07:50 Blood Culture - Preliminary Blood NO GROWTH AFTER 2 DAYS Laboratory Tests 10/26/19 10/26/19 10/26/19 07:50 07:50 07:50 WBC 8.5 RBC 4.29 L Hgb 13.0 L Hct 37.9 L MCV 88.3 MCH 30.3 MCHC 34.3 RDW 14.1 Plt Count 260 MPV 10.2 Neut # (Auto) 8.0 H Lymph # (Auto) 0.1 L [place] # (Auto) 0.4 Eos # (Auto) 0.0 Baso # (Auto) 0.0 Absolute Nucleated RBC 0.00 Nucleated RBC % 0.0 Sodium 137 Potassium 3.5 Chloride 103 Carbon Dioxide 22 Anion Gap 12.0 BUN 21 H Creatinine 1.1 Estimated GFR (MDRD) 71 L Glucose 125 H Lactic Acid 0.8 Calcium 9.0 Total Bilirubin 0.6 AST 20 ALT 33 Alkaline Phosphatase 48 Total Protein 6.4 L Albumin 3.9 Globulin 2.5 Albumin/Globulin Ratio 1.6 Lipase 28 Urine Color Urine Clarity Urine pH Ur Specific [place] Urine Protein Urine Glucose (UA) Urine Ketones Urine Occult Blood Urine Nitrite Urine Bilirubin Urine Urobilinogen Ur Leukocyte Esterase Ur Microscopic Review Urine Culture Comments Coronavirus (PCR) Influenza A (Rapid) Influenza B (Rapid) 10/26/19 10/26/19 10/26/19 08:02 08:07 08:30 WBC RBC Hgb Hct MCV MCH MCHC RDW Plt Count MPV Neut # (Auto) Lymph # (Auto) [place] # (Auto) Eos # (Auto) Baso # (Auto) Absolute Nucleated RBC Nucleated RBC % Sodium Potassium Chloride Carbon Dioxide Anion Gap BUN Creatinine Estimated GFR (MDRD) Glucose Lactic Acid Calcium Total Bilirubin AST ALT Alkaline Phosphatase Total Protein Albumin Globulin Albumin/Globulin Ratio Lipase Urine Color YELLOW Urine Clarity CLEAR Urine pH 7.0 Ur Specific [place] 1.010 Urine Protein NEGATIVE Urine Glucose (UA) NEGATIVE Urine Ketones NEGATIVE Urine Occult Blood NEGATIVE Urine Nitrite NEGATIVE Urine Bilirubin NEGATIVE Urine Urobilinogen 0.2 (NORMAL) Ur Leukocyte Esterase NEGATIVE Ur Microscopic Review NOT INDICATED Urine Culture Comments NOT INDICATED Coronavirus (PCR) NEGATIVE Influenza A (Rapid) Negative Influenza B (Rapid) Negative - Rads (name of study) CXR Radiology: Final report received, EMP read indepedently, See rad report (neg) PD MEDICAL DECISION MAKING - ED course Complexity details: reviewed results, re-evaluated patient, considered differential, d/w patient ED course: The patient had been found to be afebrile in triage, but felt as though he was febrile when I examined him. I had the nurse rechecked the patient's temperature, and was found to be Over 38. The patient was given Tylenol for this. He was also given IV fluids and worked up with labs, blood cultures, urinalysis, influenza, COVID testing, and a chest x-ray. The patient overall was very well-appearing and did not at all appear septic. Despite his fever, his heart rate was normal and blood pressure was also normal. Extensive work-up was done, and negative. The pt remained stable throughout his stay in the ED. I d/w pt and his that COVID test is pending at this time. It is very possible that the pt has picked up one of the many other viruses that go around, and can cause fever; however, given the current concerns about COVID, he should quarantine until his test results come back. I have advised him that we will call him if his test is positive, and that results should be back within 48 hours. We have discussed the usual indications for return. Departure - Departure Disposition: 01 Home, Self Care Clinical Impression: Fever Qualifiers: Fever type: unspecified Qualified Code(s): R50.9 - Fever, unspecified Condition: Stable Instructions: ED Fever Unconf Cause Comments: Your work-up today is reassuring. Your labs look good, influenza test is negative, urinalysis is normal, and your chest x-ray shows no pneumonia or other concerning findings. COVID test is pending at this time. It is most likely that you have a viral illness of some sort. Because your coven test is pending, you should quarantine until the results comes back. This is usually within 48 hours, and you will be called if it is positive. If you do not hear back within 48 hours, you may contact the hospital to arrange to get your results, though a s stated, if you are not contacted, it is generally because your test is negative. You may use ibuprofen 800 mg every 8 hours or 600 mg every 6 hours, as needed for fever. You may simultaneously use Tylenol 650 mg every 4 hours or 1000 mg every 6 hours, as needed for fever. Please be sure to drink plenty of fluids. If you have worsening shortness of breath and cough, then you should be reevaluated in the emergency department. Otherwise, it would be expected that your symptoms will improve over the next week. You do have blood cultures that are pending at this time, as well, to check for bacteria in your blood. Again, if these are positive, you will be contacted at home. Discharge Date/Time: 10/26/19 09:58
[2019-10-26 08:26] LABS: BASOPHILS % (AUTO) 0.5 %; EOSINOPHILS % (AUTO) 0.4 %; LYMPHOCYTES # (AUTO) 0.1 10^3/uL (1.5-3.5); LYMPHOCYTES % (AUTO) 0.8 %; MEAN CORPUSCULAR HEMOGLOBIN 30.3 pg (27.0-31.0); MEAN CORPUSCULAR HGB CONC 34.3 g/dL (32.0-36.0); MEAN CORPUSCULAR VOLUME 88.3 fL (80.0-94.0); MEAN PLATELET VOLUME 10.2 fL (7.4-11.4); MONOCYTES # (AUTO) 0.4 10^3/uL (0.0-1.0); MONOCYTES % (AUTO) 4.7 %; NEUTROPHILS % (AUTO) 93.4 %; PLT - PLATELET COUNT 260 10^3/uL (130-450); RED BLOOD COUNT 4.29 10^6/uL (4.70-6.10); RED CELL DISTRIBUTION WIDTH 14.1 % (12.0-15.0); WHITE BLOOD COUNT 8.5 x10^3/uL (4.8-10.8)
[2019-10-26 08:39] LABS: ALBUMIN 3.9 g/dL (3.2-5.5); ALBUMIN/GLOBULIN RATIO 1.6 (1.0-2.2); BILIRUBIN,TOTAL 0.6 mg/dL (0.2-1.0); CREATININE 1.1 mg/dL (0.6-1.2); TOTAL PROTEIN 6.4 g/dL (6.7-8.2)
[2019-10-26 09:22] LABS: BILIRUBIN,URINE NEGATIVE (NEGATIVE); GLUCOSE, URINE (UA) NEGATIVE (NEGATIVE); KETONES,URINE (UA) NEGATIVE (NEGATIVE); LEUKOCYTE ESTERASE, URINE NEGATIVE (NEGATIVE); NITRITE,URINE NEGATIVE (NEGATIVE); OCCULT BLOOD,URINE NEGATIVE (NEGATIVE); PROTEIN,URINE NEGATIVE (NEGATIVE); UROBILINOGEN,URINE 0.2 (NORMAL) E.U./dL (NORMAL)
[2019-10-26 09:24] LABS: CLARITY,URINE CLEAR (CLEAR)
--- NOTE | 2019-10-26 09:24 | XRAY Report ---
PROCEDURE: Chest 1 View X-Ray INDICATIONS: chest pain TECHNIQUE: One view of the chest was acquired. COMPARISON: FINDINGS: Surgical changes and devices: None. Lungs and pleura: No pleural effusions or pneumothorax. Lungs are clear. Mediastinum: Mediastinal contours appear normal. Heart size is normal. Bones and chest wall: No suspicious bony lesions. Overlying soft tissues appear unremarkable. IMPRESSION: Normal for age, source of current symptoms is not seen. Reviewed by: Sundeep Bustillo MD on 10/26/2019 9:22 AM PDT Approved by: Sundeep Bustillo MD on 10/26/2019 9:22 AM PDT Station ID: [id number]
[2019-10-26 09:36] VITALS: BP 120/76
== END 2019-10-26 09:58 | disposition home or self-care (01) ==
LOC: ED 07:24
DX: R50.9 Fever, unspecified (principal); Z20.828 Contact with and (suspected) exposure to other viral communicable diseases; G35 Multiple sclerosis; I10 Essential (primary) hypertension; E11.9 Type 2 diabetes mellitus without complications; Z79.84 Long term (current) use of oral hypoglycemic drugs; Z87.891 Personal history of nicotine dependence
CPT/HCPCS: 36415; 71045; 80053; 81003; 83605; 83690; 85025; 87040; 87275; 87276; 93005; 96360; 99284; A9270; U0004; 81001; 87086

== ENCOUNTER 2020-04-15 14:02 | Emergency (ER) | payer MEDICARE, OTHER ==
--- NOTE | 2020-04-15 14:15 | ED Physician Documentation ---
PD HPI CHEST PAIN - Stated complaint Stated Complaint: CHEST PX/SOA - Chief complaint Chief Complaint: Cardiac - History obtained from History obtained from: Patient - History of Present Illness Timing - onset: Today Pain level max: 5 Pain level now: 0 Quality: Sharp, Stabbing Location: Right chest Radiation: No: Jaw, Neck, Back, Abdominal, Left upper extremity, Right upper extremity Associated symptoms: No: Shortness of air, Diaphoresis, Nausea, Vomiting, Feeling faint / dizzy, General Weakness, Palpitations, Cough - Additional information Additional information: 49-year-old male presents to the emergency department with 3 episodes of sharp chest pain today. Each lasting for a few seconds at a time. Described as a stabbing type pain. He states it feels like 3-5 stabbings and then goes away. It is in the right center of the chest. Has never had similar symptoms. Does have a history of multiple sclerosis. No medication changes. No recent illness. No cough. No congestion. Currently asymptomatic. Nothing makes it better or worse. Review of Systems Constitutional: denies: Fever, Chills Throat: denies: Sore throat Respiratory: denies: Dyspnea, Cough, Hemoptysis, Wheezing GI: denies: Abdominal Pain, Nausea, Vomiting, Diarrhea Skin: denies: Rash PD PAST MEDICAL HISTORY - Past Medical History Cardiovascular: Hypertension Respiratory: None Neuro: Multiple sclerosis Endocrine/Autoimmune: Type 2 diabetes GI: Diverticulitis, Other : None HEENT: None Psych: None Musculoskeletal: None Derm: None - Past Surgical History Past Surgical History: Yes General: Cholecystectomy Ortho: Other - Present Medications Home Medications: Ambulatory Orders Medication Instructions Recorded Confirmed Losartan [Cozaar] 100 mg PO DAILY 01/02/15 04/15/20 amLODIPine [Norvasc] 10 mg PO DAILY 02/04/16 04/15/20 Cetirizine [ZyrTEC] 10 mg PO DAILY PRN 04/26/16 04/15/20 Baclofen 30 mg PO TID 02/09/17 04/15/20 Multivitamin [Theragran] 1 tab PO DAILY 02/09/17 04/15/20 Amantadine HCl [Amantadine] 100 mg PO BID 04/21/18 04/15/20 Fingolimod HCl [Gilenya] 0.5 mg PO DAILY 04/21/18 04/15/20 Gabapentin [Neurontin] 200 mg PO DAILY 04/21/18 04/15/20 Gabapentin [Neurontin] 300 mg PO BIDWM 08/19/19 04/15/20 Metformin HCl [Metformin HCl ER] 750 mg PO DAILY 08/19/19 04/15/20 diphenhydrAMINE [Benadryl] 50 mg PO DAILY PM 08/19/19 04/15/20 - Allergies Allergies/Adverse Reactions: Allergies Allergy/AdvReac Type Severity Reaction Status Date / Time No Known Drug Allergies Allergy Verified 04/15/20 14:04 - Social History Does the pt smoke?: Yes Smoking Status: Former smoker Does the pt drink ETOH?: Yes Does the pt have substance abuse?: No - Immunizations Immunizations are current?: Yes - POLST Patient has POLST: No POLST Status: Full Code PD ED PE NORMAL - Vitals Vital signs reviewed: Yes - General General: Alert and oriented X 3, No acute distress - HEENT HEENT: Moist mucous membranes - Neck Neck: Supple, no meningeal sign - Cardiac Cardiac: RRR, Strong equal pulses - Respiratory Respiratory: No respiratory distress, Clear bilaterally - Abdomen Abdomen: Soft, Non tender, Non distended - Derm Derm: Warm and dry - Extremities Extremities: No edema, No calf tenderness / cord - Neuro Neuro: Alert and oriented X 3 - Psych Psych: Normal mood, Normal affect Results - Vitals Vitals: Vital Signs - 24 hr 04/15/20 04/15/20 04/15/20 14:04 14:30 14:58 Temperature 36.6 C Heart Rate 96 82 84 Respiratory 16 14 21 Rate Blood Pressure 143/93 H 129/86 H 124/90 H O2 Saturation 99 97 96 Oxygen O2 Source Room air - EKG (time done) 1403 Rate: Rate (enter#) (88) Rhythm: NSR [place]: Normal Intervals: Normal [place] QRS: Normal Ischemia: Normal ST segments - Labs Labs: Laboratory Tests 04/15/20 04/15/20 04/15/20 14:23 14:23 14:23 WBC 5.3 RBC 5.14 Hgb 14.7 Hct 45.3 MCV 88.1 MCH 28.6 MCHC 32.5 RDW 13.9 Plt Count 329 MPV 9.8 Neut # (Auto) 4.5 Lymph # (Auto) 0.3 L [place] # (Auto) 0.4 Eos # (Auto) 0.1 Baso # (Auto) 0.0 Absolute Nucleated RBC 0.00 Nucleated RBC % 0.0 Sodium 140 Potassium 3.5 Chloride 101 Carbon Dioxide 26 Anion Gap 13.0 BUN 14 Creatinine 0.9 Estimated GFR (MDRD) 90 Glucose 118 H Calcium 9.8 Total Bilirubin 0.6 AST 25 ALT 58 Alkaline Phosphatase 59 Troponin I High Sens 3.9 Total Protein 7.8 Albumin 4.8 Globulin 3.0 Albumin/Globulin Ratio 1.6 Lipase 25 - Rads (name of study) Chest x-ray Radiology: Prelim report reviewed, EMP read contemporaneously (No acute abnormality), See rad report PD MEDICAL DECISION MAKING - ED course Complexity details: reviewed results, re-evaluated patient, considered differential (No ST elevation LA, no aortic dissection, no PE, no tension pneumothorax, no aortic aneurysm), d/w patient ED course: Patient with what sounds like palpitations and atypical chest pain. No acute findings on EKG, telemetry, chest x-ray, laboratory testing. Negative troponin. Unclear etiology of his symptoms, recommend that he follow-up with his doctor for further care. He will return if he worsens. No evidence of acute coronary syndrome, pneumothorax, pulmonary embolus, aortic dissection. Patient counseled regarding signs and symptoms for which I believe and urgent re-evaluation would be necessary. Patient with good understanding of and agreement to plan and is comfortable going home at this time This document was made in part using voice recognition software. While efforts are made to proofread this document, sound alike and grammatical errors may occur. Departure - Departure Disposition: 01 Home, Self Care Clinical Impression: Chest pain, atypical, Palpitations Condition: Good Instructions: ED Chest Pain Atypical Unkn Cause Follow-Up: your,doctor in 1 week [Other] Comments: Follow up with your doctor for further care. Your testing is normal today. You can use motrin or tylenol for pain. Discharge Date/Time: 04/15/20 15:35
--- NOTE | 2020-04-15 14:26 | XRAY Report ---
PROCEDURE: Chest 1 View X-Ray INDICATIONS: Chest Pain TECHNIQUE: One view of the chest was acquired. COMPARISON: Chest x-ray one view, 10/18/2019 and 02/10/2017. FINDINGS: Surgical changes and devices: None. Lungs and pleura: No pleural effusions or pneumothorax. Lungs are clear. Mediastinum: Mediastinal contours appear normal. Heart size is normal. Bones and chest wall: No suspicious bony lesions. Overlying soft tissues appear unremarkable. IMPRESSION: No acute cardiopulmonary disease. Reviewed by: Mey Renteria MD on 04/15/2020 2:24 PM PST Approved by: Mey Renteria MD on 04/15/2020 2:24 PM PST Station ID: [id number]
[2020-04-15 14:30] LABS: BASOPHILS % (AUTO) 0.4 %; EOSINOPHILS # (AUTO) 0.1 10^3/uL (0.0-0.7); EOSINOPHILS % (AUTO) 1.3 %; HGB - HEMOGLOBIN 14.7 g/dL (14.0-18.0); LYMPHOCYTES # (AUTO) 0.3 10^3/uL (1.5-3.5); LYMPHOCYTES % (AUTO) 6.4 %; MEAN CORPUSCULAR HEMOGLOBIN 28.6 pg (27.0-31.0); MEAN CORPUSCULAR HGB CONC 32.5 g/dL (32.0-36.0); MEAN CORPUSCULAR VOLUME 88.1 fL (80.0-94.0); MEAN PLATELET VOLUME 9.8 fL (7.4-11.4); MONOCYTES # (AUTO) 0.4 10^3/uL (0.0-1.0); MONOCYTES % (AUTO) 7.6 %; NEUTROPHILS # (AUTO) 4.5 10^3/uL (1.5-6.6); NEUTROPHILS % (AUTO) 84.1 %; PLT - PLATELET COUNT 329 10^3/uL (130-450); RED BLOOD COUNT 5.14 10^6/uL (4.70-6.10); RED CELL DISTRIBUTION WIDTH 13.9 % (12.0-15.0); WHITE BLOOD COUNT 5.3 x10^3/uL (4.8-10.8)
[2020-04-15 14:46] LABS: ALBUMIN 4.8 g/dL (3.2-5.5); ALBUMIN/GLOBULIN RATIO 1.6 (1.0-2.2); BILIRUBIN,TOTAL 0.6 mg/dL (0.2-1.0); CALCIUM 9.8 mg/dL (8.5-10.3); CREATININE 0.9 mg/dL (0.6-1.2); TOTAL PROTEIN 7.8 g/dL (6.7-8.2)
[2020-04-15 14:59] VITALS: BP 124/90
== END 2020-04-15 15:35 | disposition home or self-care (01) ==
LOC: ED 14:02
DX: R07.89 Other chest pain (principal); R00.2 Palpitations; G35 Multiple sclerosis; E11.9 Type 2 diabetes mellitus without complications; Z79.84 Long term (current) use of oral hypoglycemic drugs; I10 Essential (primary) hypertension; Z87.891 Personal history of nicotine dependence
CPT/HCPCS: 36415; 80053; 83690; 84484; 85025; 93005; 99284

== ENCOUNTER 2020-06-23 23:02 | Outpatient (CLI) | payer MEDICARE, OTHER | END 2020-06-23 23:03 | disposition critical access hospital (66) | LOC: EMS 23:02 | DX: R42 Dizziness and giddiness (principal) | CPT/HCPCS: A0425; A0429 ==

== ENCOUNTER 2020-06-23 23:10 | Emergency (ER) | payer MEDICARE, OTHER ==
[2020-06-23 23:44] LABS: BASOPHILS % (AUTO) 0.4 %; EOSINOPHILS # (AUTO) 0.1 10^3/uL (0.0-0.7); EOSINOPHILS % (AUTO) 1.5 %; HCT - HEMATOCRIT 39.1 % (42.0-52.0); HGB - HEMOGLOBIN 12.7 g/dL (14.0-18.0); LYMPHOCYTES # (AUTO) 0.2 10^3/uL (1.5-3.5); LYMPHOCYTES % (AUTO) 3.8 %; MEAN CORPUSCULAR HEMOGLOBIN 28.7 pg (27.0-31.0); MEAN CORPUSCULAR HGB CONC 32.5 g/dL (32.0-36.0); MEAN CORPUSCULAR VOLUME 88.5 fL (80.0-94.0); MEAN PLATELET VOLUME 9.7 fL (7.4-11.4); MONOCYTES # (AUTO) 0.5 10^3/uL (0.0-1.0); MONOCYTES % (AUTO) 10.3 %; NEUTROPHILS % (AUTO) 83.8 %; PLT - PLATELET COUNT 272 10^3/uL (130-450); RED BLOOD COUNT 4.42 10^6/uL (4.70-6.10); RED CELL DISTRIBUTION WIDTH 14.3 % (12.0-15.0); WHITE BLOOD COUNT 4.7 x10^3/uL (4.8-10.8)
[2020-06-23 23:59] LABS: ALBUMIN/GLOBULIN RATIO 1.7 (1.0-2.2); BILIRUBIN,TOTAL 0.7 mg/dL (0.2-1.0); CREATININE 0.9 mg/dL (0.6-1.2); POTASSIUM 3.2 mmol/L (3.5-5.0); TOTAL PROTEIN 6.4 g/dL (6.7-8.2)
--- OUTSIDE RECORDS SUMMARY | 2020-06-24 00:20 | EXTERNAL MEDICAL SUMMARY RPT | Continuity of Care Document ---
:1970 Demographics Phone Unavailable Preferred Language Unknown Marital Status Unknown Caodaism Affiliation Unknown Race Unknown Ethnic Group Unknown Author Organization [facility] Address [address] [id number] Phone Social History date description facility [id number]
[2020-06-24] MEDS ORDERED: POTASSIUM CHLORIDE 20 MEQ TABLET PO STA (01:02)
[2020-06-24] MEDS ORDERED: SODIUM CHLORIDE 0.9% 1,000 ML IV STA (01:53)
--- NOTE | 2020-06-24 01:57 | ED Physician Documentation ---
History of Present Illness - Stated complaint Stated Complaint: SYNCOPE - Chief complaint Chief Complaint: Neuro - History obtained from History obtained from: Patient, Family, EMS - History of Present Illness Timing: Today - Additonal information Additional information: 49-year-old male with a history of MS was out working in his yard today and this evening he was doing a barbecue celebrating his 's birthday and he was went to get up to go check on the smoker and felt lightheaded and dizzy. He layed down on the couch and felt somewhat better elevating his feet. He felt like he was going to pass out. He had taken some viagra earlier and he had taken some gummies. He felt like he was going to pass out and called the ambulance. He arrives here with IV in place and has been given 100ml of fluid prior to arrival. Review of Systems Constitutional: denies: Fever Eyes: denies: Decreased vision Ears: denies: Ear pain Nose: denies: Rhinorrhea / runny nose, Congestion Throat: denies: Sore throat Cardiac: denies: Chest pain / pressure Respiratory: denies: Dyspnea, Cough GI: denies: Abdominal Pain, Nausea, Vomiting : denies: Dysuria, Frequency Skin: denies: Rash Musculoskeletal: denies: Neck pain, Back pain, Extremity pain Neurologic: reports: Near syncope. denies: Generalized weakness, Focal weakness, Numbness PD PAST MEDICAL HISTORY - Past Medical History Past Medical History: Yes Cardiovascular: Hypertension Respiratory: None Neuro: Multiple sclerosis Endocrine/Autoimmune: Type 2 diabetes GI: Diverticulitis, Other : None HEENT: None Psych: None Musculoskeletal: None Derm: None - Past Surgical History Past Surgical History: Yes General: Cholecystectomy Ortho: Other - Present Medications Home Medications: Ambulatory Orders Medication Instructions Recorded Confirmed Losartan [Cozaar] 100 mg PO DAILY 01/02/15 04/15/20 amLODIPine [Norvasc] 10 mg PO DAILY 02/04/16 04/15/20 Cetirizine [ZyrTEC] 10 mg PO DAILY PRN 04/26/16 04/15/20 Baclofen 30 mg PO TID 02/09/17 04/15/20 Multivitamin [Theragran] 1 tab PO DAILY 02/09/17 04/15/20 Amantadine HCl [Amantadine] 100 mg PO BID 04/21/18 04/15/20 Gabapentin [Neurontin] 200 mg PO QID 04/21/18 04/15/20 Metformin HCl [Metformin HCl ER] 750 mg PO DAILY 08/19/19 04/15/20 diphenhydrAMINE [Benadryl] 50 mg PO DAILY PM 08/19/19 04/15/20 - Allergies Allergies/Adverse Reactions: Allergies Allergy/AdvReac Type Severity Reaction Status Date / Time No Known Drug Allergies Allergy Verified 06/23/20 23:16 - Social History Does the pt smoke?: Yes Smoking Status: Current every day smoker Does the pt drink ETOH?: Yes Does the pt have substance abuse?: No - Immunizations Immunizations are current?: Yes - POLST Patient has POLST: No POLST Status: Full Code PD ED PE NORMAL - Vitals Vital signs reviewed: Yes (hyertensive mild ) - General General: Alert and oriented X 3, No acute distress, Well developed/nourished - HEENT HEENT: Atraumatic, PERRL, EOMI, Other (dry mucous membranes ) - Neck Neck: Supple, no meningeal sign, No bony TTP - Cardiac Cardiac: RRR, No murmur - Respiratory Respiratory: No respiratory distress, Clear bilaterally - Abdomen Abdomen: Normal bowel sounds, Soft, Non tender, Non distended, No organomegaly - Back Back: No CVA TTP, No spinal TTP - Derm Derm: Normal color, Warm and dry, No rash - Extremities Extremities: No deformity, No edema - Neuro Neuro: Alert and oriented X 3, 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, No motor deficit, No sensory deficit, Normal speech Eye Opening: Spontaneous Motor: Obeys Commands Verbal: Oriented GCS Score: 15 - Psych Psych: Normal mood, Normal affect Results - Vitals Vitals: Vital Signs - 24 hr 06/23/20 06/23/20 06/24/20 23:16 23:22 01:03 Temperature 37.0 C 37.0 C 37 C Heart Rate 75 75 68 Respiratory 16 16 16 Rate Blood Pressure 118/89 H 118/89 H 113/81 H O2 Saturation 96 96 99 06/24/20 02:18 Temperature 36.4 C L Heart Rate 71 Respiratory 18 Rate Blood Pressure 117/72 O2 Saturation 100 Oxygen O2 Source Room air - EKG (time done) 2319 Rate: Rate (enter#) (75) Rhythm: NSR Ischemia: Normal ST segments, Q waves Compare to prior EKG: Changed from prior EKG (SPT 04-15-2020 the rate has decresed) Computer interpretation: Agree with computer - Labs Labs: Laboratory Tests 06/23/20 06/23/20 06/23/20 23:31 23:31 23:31 WBC 4.7 L RBC 4.42 L Hgb 12.7 L Hct 39.1 L MCV 88.5 MCH 28.7 MCHC 32.5 RDW 14.3 Plt Count 272 MPV 9.7 Neut # (Auto) 4.0 Lymph # (Auto) 0.2 L [place] # (Auto) 0.5 Eos # (Auto) 0.1 Baso # (Auto) 0.0 Absolute Nucleated RBC 0.00 Nucleated RBC % 0.0 Sodium 142 Potassium 3.2 L Chloride 105 Carbon Dioxide 27 Anion Gap 10.0 BUN 16 Creatinine 0.9 Estimated GFR (MDRD) 90 Glucose 139 H Calcium 9.0 Total Bilirubin 0.7 AST 22 ALT 41 Alkaline Phosphatase 47 Troponin I High Sens 4.3 Total Protein 6.4 L Albumin 4.0 Globulin 2.4 Albumin/Globulin Ratio 1.7 Lipase 21 L Procedures - IVC sono (time) 0050 Bedside IVC sono: IVC measures (cm) (1.02), Dehydration (est 1 liter deficit) PD MEDICAL DECISION MAKING - ED course Complexity details: reviewed results, re-evaluated patient, considered differential, d/w patient ED course: 49-year-old male working outside earlier today and taken some Viagra and had a near syncopal episode when he went to stand up to go check on his smoker. He was found to be mildly dehydrated on interrogation the inferior vena cava and he is administered intravenous saline. He has improvement in his symptoms. Time has passed since he took his Viagra and I do not believe there is any danger to the patient furthermore. Departure - Departure Disposition: 01 Home, Self Care Clinical Impression: Dehydration, Postural dizziness with near syncope Condition: Stable Instructions: ED Dehydration Follow-Up: KIKI Crowley [Provider Group] Discharge Date/Time: 06/24/20 02:22
[2020-06-24 02:19] VITALS: BP 117/72
== END 2020-06-24 02:22 | disposition home or self-care (01) ==
LOC: EDUNIT# → ED 23:10
DX: E86.0 Dehydration (principal); R42 Dizziness and giddiness; R55 Syncope and collapse; G35 Multiple sclerosis; I10 Essential (primary) hypertension; E11.9 Type 2 diabetes mellitus without complications; Z79.84 Long term (current) use of oral hypoglycemic drugs; F17.200 Nicotine dependence, unspecified, uncomplicated
CPT/HCPCS: 36415; 80053; 83690; 84484; 85025; 93005; 96360; 99284; A9270

== ENCOUNTER 2021-08-16 22:48 | Outpatient (CLI) | payer MEDICARE, OTHER | END 2021-08-16 22:49 | disposition critical access hospital (66) | LOC: EMS 22:48 | DX: I10 Essential (primary) hypertension (principal); R07.9 Chest pain, unspecified | CPT/HCPCS: A0425; A0429 ==

== ENCOUNTER 2021-08-16 23:29 | Emergency (ER) | payer MEDICARE, OTHER ==
--- NOTE | 2021-08-16 23:46 | ED Physician Documentation ---
PD HPI CHEST PAIN - Stated complaint Stated Complaint: CHEST PX/HTN - History obtained from History obtained from: Patient, Family (), EMS - History of Present Illness Timing - onset: Enter time (20:30), Today Timing - onset during: Rest Timing - details: Abrupt onset, Intermittant Quality: Sharp, Pain Location: Substernal Radiation: Other (no radiation) Improved by: Nothing Worsened by: Other (no exacerbating factors) Associated symptoms: Feeling faint / dizzy. No: Shortness of air, Diaphoresis, Nausea, Vomiting, General Weakness, Palpitations, Cough Similar symptoms before: Diagnosis (multiple sclerosis) Recently seen: Not recently seen - Additional information Additional information: BIBA for several symptoms which seemed to start at approximately 8:30 PM tonight while at home at rest. He describes midline chest pain but he says this feels very similar to recurrent pain which has been attributed to his multiple sclerosis affecting an intercostal nerve; because he is familiar with this pain, this is not his chief concern at this time. He is initially vague in trying to describe his symptoms, saying I just dont feel right, but eventually is able to describe shock-like (per patient) sensations to bilateral hands and feet since 8:30 PM without inciting/exacerbating/ameliorating factors, with numb, tingly paresthesias to same areas. He says he feels generalized hot and then cold (per patient) and has generalized dizziness/lightheadedness. He says he has had not only the chest pain, but also the paresthesias with shock-like sensation to BUE/BLE in the past attributed to his MS, sometimes has receives QD IV steroids x 3 days. Denies cardiac history. Review of Systems Constitutional: reports: Chills, Sweats. denies: Fever, Fatigue Eyes: reports: Reviewed and negative Cardiac: reports: Chest pain / pressure. denies: Palpitations, Pedal edema Respiratory: reports: Reviewed and negative GI: reports: Reviewed and negative : denies: Dysuria, Frequency Skin: denies: Rash Musculoskeletal: reports: Reviewed and negative Neurologic: reports: Numbness (BUE/BLE numb, tingly per patient (intermittently)). denies: Generalized weakness, Focal weakness, Difficulty speaking, Near syncope, Confused, Altered mental status, Headache PD PAST MEDICAL HISTORY - Past Medical History Cardiovascular: Hypertension Respiratory: None Neuro: Multiple sclerosis Endocrine/Autoimmune: Type 2 diabetes GI: Diverticulitis, Other : None HEENT: None Psych: None Musculoskeletal: None Derm: None - Past Surgical History Past Surgical History: Yes General: Cholecystectomy Ortho: Other - Present Medications Home Medications: Ambulatory Orders Medication Instructions Recorded Confirmed Losartan [Cozaar] 100 mg PO DAILY 01/02/15 08/16/21 amLODIPine [Norvasc] 10 mg PO DAILY 02/04/16 08/16/21 Cetirizine [ZyrTEC] 10 mg PO DAILY PRN 04/26/16 08/16/21 Baclofen 30 mg PO TID 02/09/17 08/16/21 Multivitamin [Theragran] 1 tab PO DAILY 02/09/17 08/16/21 Gabapentin [Neurontin] 200 mg PO QID 04/21/18 08/16/21 amantadine HCL [Amantadine] 100 mg PO BID 04/21/18 08/16/21 LORazepam [Ativan] 0.5 - 1 mg PO Q6H PRN #14 tablet 08/17/21 Losartan [Cozaar] 100 mg PO DAILY #30 tablet 08/17/21 - Allergies Allergies/Adverse Reactions: Allergies Allergy/AdvReac Type Severity Reaction Status Date / Time No Known Drug Allergies Allergy Verified 06/23/20 23:16 - Social History Does the pt smoke?: Yes Smoking Status: Current every day smoker Does the pt drink ETOH?: Yes Does the pt have substance abuse?: No - Immunizations Immunizations are current?: Yes - POLST Patient has POLST: No POLST Status: Full Code PD ED PE NORMAL - Vitals Vital signs reviewed: Yes - General General: Alert and oriented X 3, No acute distress, Well developed/nourished - HEENT HEENT: PERRL, EOMI, Moist mucous membranes, Pharynx benign - Neck Neck: Supple, no meningeal sign - Cardiac Cardiac: RRR, No murmur, No gallop, No rub - Respiratory Respiratory: No respiratory distress, Clear bilaterally - Abdomen Abdomen: Soft, Non tender - Back Back: No CVA TTP - Derm Derm: Normal color, Warm and dry - Extremities Extremities: No edema - Neuro Neuro: Alert and oriented X 3, clipper operator 2-12 intact, No motor deficit, No sensory deficit Eye Opening: Spontaneous Motor: Obeys Commands Verbal: Oriented GCS Score: 15 Results - Vitals Vitals: Oxygen O2 Source Room air - EKG (time done) No standard instances Rate: Rate (enter#) (82) Rhythm: NSR [place]: Normal Intervals: Normal [place] QRS: Normal Ischemia: Normal ST segments, Q waves (isolated QIII) #2 Rate: Rate (enter#) (82) Rhythm: NSR [place]: Normal Intervals: Prolonged [place] QRS: Normal Ischemia: Normal ST segments, Q waves (isolated QIII) Other comments: Other comments (RsR V1) - Labs Labs: Laboratory Tests 08/16/21 08/16/21 08/16/21 23:51 23:51 23:51 WBC 6.3 RBC 4.79 Hgb 13.6 L Hct 41.1 L MCV 85.8 MCH 28.4 MCHC 33.1 RDW 13.4 Plt Count 299 MPV 9.6 Neut # (Auto) 5.4 Lymph # (Auto) 0.3 L [place] # (Auto) 0.5 Eos # (Auto) 0.1 Baso # (Auto) 0.0 Absolute Nucleated RBC 0.00 Nucleated RBC % 0.0 Sodium 137 Potassium 3.3 L Chloride 102 Carbon Dioxide 26 Anion Gap 9.0 BUN 15 Creatinine 0.8 Estimated GFR (MDRD) 102 Glucose 141 H Calcium 9.4 Total Bilirubin 0.6 AST 19 ALT 35 Alkaline Phosphatase 54 Troponin I High Sens 5.3 Total Protein 6.8 Albumin 4.0 Globulin 2.8 Albumin/Globulin Ratio 1.4 Lipase 25 Urine Color Urine Clarity Urine pH Ur Specific [place] Urine Protein Urine Glucose (UA) Urine Ketones Urine Occult Blood Urine Nitrite Urine Bilirubin Urine Urobilinogen Ur Leukocyte Esterase Ur Microscopic Review Urine Culture Comments 08/16/21 23:57 WBC RBC Hgb Hct MCV MCH MCHC RDW Plt Count MPV Neut # (Auto) Lymph # (Auto) [place] # (Auto) Eos # (Auto) Baso # (Auto) Absolute Nucleated RBC Nucleated RBC % Sodium Potassium Chloride Carbon Dioxide Anion Gap BUN Creatinine Estimated GFR (MDRD) Glucose Calcium Total Bilirubin AST ALT Alkaline Phosphatase Troponin I High Sens Total Protein Albumin Globulin Albumin/Globulin Ratio Lipase Urine Color YELLOW Urine Clarity CLEAR Urine pH 7.5 Ur Specific [place] 1.010 Urine Protein NEGATIVE Urine Glucose (UA) NEGATIVE Urine Ketones NEGATIVE Urine Occult Blood NEGATIVE Urine Nitrite NEGATIVE Urine Bilirubin NEGATIVE Urine Urobilinogen 0.2 (NORMAL) Ur Leukocyte Esterase NEGATIVE Ur Microscopic Review NOT INDICATED Urine Culture Comments NOT INDICATED - Rads (name of study) chest xray Radiology: Prelim report reviewed, See rad report PD MEDICAL DECISION MAKING - ED course Complexity details: reviewed old records, reviewed results, re-evaluated patient, considered differential, d/w patient ED course: unremarkable testing at this time, including EKG x 2, blood tests including hs- cTn, and chest xray. We reviewed these test results and raises question of whether his symptoms might represent MS flare. Patient says his symptoms do seem to be c/w previous MS flares, although not new location nor type of pain, and that he has never had both the paresthesias and the chest discomfort at the same time. At this point, I contacted Dr. Reyes (covering for patients neurologist, Dr. Triplett); she says that ideally, MRI/MRA would be performed on brain and neck/ c- spine, looking for evidence of new lesions. This is unlikely given normal such study two months ago , but still possible .However, MRI is not available at night at [facility]. She suggests shared decision approach to whether to administer steroid (1000 mg methylprednisolone QD x 3 days), with input from patient as to whether he feels there are any new /unusual signs/symptoms he is experiencing (versus symptoms he has had with previous MS flares, which would weaken the argument for steroids). I discussed this with the patient and after much thought and further discussion, he elects to hold off on steroids until he hears from/speaks to his neurologist tomorrow (might not be available until Tuesday due to holiday). He is describing feeling anxious and anticipates difficult sleeping, and thus given PO Lorazepam prior to d/c with rx for same transmitted to his pharmacy of choice. Also of note is that patient says he stopped taking his two anit-hypertensive me dications approximately 1 year ago (unclear why; he says something to with the pandemic). He says he does measure his BP at home regularly, daily basis; he says readings have been averaging 120s-130s/80s-90s. He has consistently elevated BP readings in ED and thus after discussion and shared-decision making, we agreed that he is to resume the losartan but will hold off on amlodipine, will track his BP 1-2 times per day and follow up with PMD for reassessment of whether his blood pressure medication(s) need to be readjusted. Departure - Departure Disposition: 01 Home, Self Care Clinical Impression: Bilateral leg paresthesia, Paresthesia of both hands Condition: Good Instructions: ED Paraesthesias Prescriptions: LORazepam [Ativan] 0.5 - 1 mg PO Q6H PRN #14 tablet PRN Reason: Anxiety Losartan [Cozaar] 100 mg PO DAILY #30 tablet Comments: Prescriptions for losartan (high blood pressure medication) and lorazepam (anti- anxiety medication) have been electronically submitted to [facility] pharmacy in [place]. The tests performed tonight are unremarkable; the cause of your symptoms is not clear at this time. As we discussed, it is possible that your symptoms are the result of an MS flare. I discussed your case with Dr. Reyes (director information security neurology at [facility]); her recommendation is to obtain MRI of your brain and neck, but MRI is not available at this hospital at this hour. Steroids are an option for presumed MS flare, but you have declined this option at this time. Please contact your neurologist to ascertain further recommendations regarding testing and/or treatment. You can return to the emergency department at any time you feel you need to be reevaluated. Discharge Date/Time: 08/17/21 02:39
[2021-08-16 23:59] LABS: BASOPHILS % (AUTO) 0.6 %; EOSINOPHILS # (AUTO) 0.1 10^3/uL (0.0-0.7); EOSINOPHILS % (AUTO) 0.9 %; HCT - HEMATOCRIT 41.1 % (42.0-52.0); HGB - HEMOGLOBIN 13.6 g/dL (14.0-18.0); LYMPHOCYTES # (AUTO) 0.3 10^3/uL (1.5-3.5); LYMPHOCYTES % (AUTO) 4.9 %; MEAN CORPUSCULAR HEMOGLOBIN 28.4 pg (27.0-31.0); MEAN CORPUSCULAR HGB CONC 33.1 g/dL (32.0-36.0); MEAN CORPUSCULAR VOLUME 85.8 fL (80.0-94.0); MEAN PLATELET VOLUME 9.6 fL (7.4-11.4); MONOCYTES # (AUTO) 0.5 10^3/uL (0.0-1.0); MONOCYTES % (AUTO) 7.1 %; NEUTROPHILS # (AUTO) 5.4 10^3/uL (1.5-6.6); NEUTROPHILS % (AUTO) 86.2 %; PLT - PLATELET COUNT 299 10^3/uL (130-450); RED BLOOD COUNT 4.79 10^6/uL (4.70-6.10); RED CELL DISTRIBUTION WIDTH 13.4 % (12.0-15.0); WHITE BLOOD COUNT 6.3 x10^3/uL (4.8-10.8)
[2021-08-17 00:12] LABS: ALBUMIN/GLOBULIN RATIO 1.4 (1.0-2.2); BILIRUBIN,TOTAL 0.6 mg/dL (0.2-1.0); CALCIUM 9.4 mg/dL (8.5-10.3); CREATININE 0.8 mg/dL (0.6-1.2); POTASSIUM 3.3 mmol/L (3.5-5.0); TOTAL PROTEIN 6.8 g/dL (6.7-8.2)
--- NOTE | 2021-08-17 00:48 | XRAY Report ---
PROCEDURE: Chest 2 View X-Ray INDICATIONS: chest pain TECHNIQUE: 2 views of the chest. COMPARISON: 04/15/2020. FINDINGS: Surgical changes and devices: None. Lungs and pleura: No pleural effusions or pneumothorax. Lungs are clear. Mediastinum: Mediastinal contours are normal. Heart size is normal. Bones and chest wall: No suspicious bony abnormalities. Soft tissues appear unremarkable. IMPRESSION: 1. No acute cardiopulmonary disease. Reviewed by: Oracio Menendez MD on 08/17/2021 12:47 AM PDT Approved by: Oracio Menendez MD on 08/17/2021 12:47 AM PDT Station ID: [id number]
[2021-08-17 02:12] LABS: BILIRUBIN,URINE NEGATIVE (NEGATIVE); GLUCOSE, URINE (UA) NEGATIVE (NEGATIVE); KETONES,URINE (UA) NEGATIVE (NEGATIVE); LEUKOCYTE ESTERASE, URINE NEGATIVE (NEGATIVE); NITRITE,URINE NEGATIVE (NEGATIVE); OCCULT BLOOD,URINE NEGATIVE (NEGATIVE); PH,URINE 7.5 PH (5.0-7.5); PROTEIN,URINE NEGATIVE (NEGATIVE); UROBILINOGEN,URINE 0.2 (NORMAL) E.U./dL (NORMAL)
[2021-08-17 02:19] LABS: CLARITY,URINE CLEAR (CLEAR)
[2021-08-17] MEDS ORDERED: LORazepam 0.5 MG TABLET PO STA (02:22)
[2021-08-17] MEDS ORDERED: LOSARTAN 50 MG TABLET PO STA (02:26)
[2021-08-17 02:34] VITALS: BP 164/99
== END 2021-08-17 02:39 | disposition home or self-care (01) ==
LOC: EDUNIT# → ED 23:29
DX: R20.2 Paresthesia of skin (principal); E11.9 Type 2 diabetes mellitus without complications; F17.200 Nicotine dependence, unspecified, uncomplicated
CPT/HCPCS: 36415; 71046; 80053; 81003; 83690; 84484; 85025; 93005; 99284; A9270; 81001; 87086

== ENCOUNTER 2022-06-09 13:29 | Emergency (ER) | payer MEDICARE, OTHER ==
--- NOTE | 2022-06-09 13:51 | ED Physician Documentation ---
PD HPI CHEST PAIN - Stated complaint Stated Complaint: CHEST PAIN/ IRREGULAR HEARTRATE - Chief complaint Chief Complaint: Cardiac - History obtained from History obtained from: Patient - Additional information Additional information: 51-year-old gentleman with untreated hypertension, but no other history of heart disease. He does have a history of MS. He started feel lightheaded and dizzy about an hour ago and checked his blood pressure and it was about 190/100. Then he felt like he was having PVCs which she has had before but did a home EKG which shows showed sinus tachycardia. Review of Systems Cardiac: denies: Pedal edema, Calf pain Musculoskeletal: reports: Neck pain Neurologic: denies: Headache, Head injury PD PAST MEDICAL HISTORY - Past Medical History Past Medical History: Yes Cardiovascular: Hypertension Respiratory: None Neuro: Peripheral neuropathy, Multiple sclerosis Endocrine/Autoimmune: Type 2 diabetes GI: Diverticulitis, Other : None HEENT: None Psych: None Musculoskeletal: None Derm: None - Past Surgical History Past Surgical History: Yes General: Cholecystectomy Ortho: Other - Present Medications Home Medications: Ambulatory Orders Medication Instructions Recorded Confirmed Losartan [Cozaar] 100 mg PO DAILY 01/02/15 08/16/21 amLODIPine [Norvasc] 10 mg PO DAILY 02/04/16 08/16/21 Cetirizine [ZyrTEC] 10 mg PO DAILY PRN 04/26/16 08/16/21 Baclofen 30 mg PO TID 02/09/17 08/16/21 Multivitamin [Theragran] 1 tab PO DAILY 02/09/17 08/16/21 Gabapentin [Neurontin] 200 mg PO QID 04/21/18 08/16/21 amantadine HCL [Amantadine] 100 mg PO BID 04/21/18 08/16/21 LORazepam [Ativan] 0.5 - 1 mg PO Q6H PRN #14 tablet 08/17/21 Losartan [Cozaar] 100 mg PO DAILY #30 tablet 08/17/21 Losartan [Cozaar] 100 mg PO DAILY #30 tablet 06/09/22 - Allergies Allergies/Adverse Reactions: Allergies Allergy/AdvReac Type Severity Reaction Status Date / Time No Known Drug Allergies Allergy Verified 06/09/22 13:41 - Social History Does the pt smoke?: No Smoking Status: Former smoker Does the pt drink ETOH?: Yes Does the pt have substance abuse?: No - Immunizations Immunizations are current?: Yes - POLST Patient has POLST: No POLST Status: Full Code PD ED PE NORMAL - Vitals Vital signs reviewed: Yes (Mild resting tachycardia and hypertension) - General General: Alert and oriented X 3, No acute distress - HEENT HEENT: PERRL, EOMI - Neck Neck: Supple, no meningeal sign, No bony TTP - Cardiac Cardiac: RRR, No murmur - Respiratory Respiratory: No respiratory distress, Clear bilaterally - Abdomen Abdomen: Non tender - Extremities Extremities: No edema, No calf tenderness / cord - Neuro Neuro: Alert and oriented X 3, Normal speech Results - Vitals Vitals: Vital Signs - 24 hr 06/09/22 13:41 Temperature 37.2 C Heart Rate 107 H Respiratory 16 Rate Blood Pressure 182/112 H O2 Saturation 99 Oxygen O2 Source Room air - EKG (time done) 1334 EKG releavant findings:: EKG personally interpreted by author of this note. Relevant findings are: Rate: Rate (enter#) (104) Rhythm: Sinus tachycardia, LAE [place]: Normal Intervals: Normal [place] QRS: Normal Ischemia: Non specific changes Compare to prior EKG: Unchanged from prior EKG (no chg from 08/16/21) - Labs Labs: Laboratory Tests 06/09/22 06/09/22 06/09/22 13:58 13:58 13:58 WBC 4.5 L RBC 4.77 Hgb 13.5 L Hct 41.3 L MCV 86.6 MCH 28.3 MCHC 32.7 RDW 13.5 Plt Count 290 MPV 10.4 Neut # (Auto) 3.7 Lymph # (Auto) 0.3 L [place] # (Auto) 0.4 Eos # (Auto) 0.1 Baso # (Auto) 0.0 Absolute Nucleated RBC 0.00 Nucleated RBC % 0.0 Sodium 137 Potassium 3.7 Chloride 102 Carbon Dioxide 28 Anion Gap 7.0 BUN 15 Creatinine 0.9 Estimated GFR (MDRD) 89 Glucose 214 H Calcium 9.8 Total Bilirubin 0.5 AST 19 ALT 35 Alkaline Phosphatase 64 Troponin I High Sens 5.9 Total Protein 6.3 L Albumin 3.6 Globulin 2.7 Albumin/Globulin Ratio 1.3 Lipase 29 - Rads (name of study) 1v cxr Relevant Findings:: Final report received (NAD), EMP independent interpretation of test (NAD) PD Medical Decision Making - ED course ED course: 51-year-old gentleman with very atypical chest pain, more dizziness and worries about his blood pressure. His blood pressure trended down without specific intervention here to 160/100, he does want to restart his losartan which she has been noncompliant with due to just not seeing his PCM. Otherwise, his work-up shows an unremarkable CBC, negative troponin, and a CMP only remarkable for a blood sugar of 214 which was discussed with the patient. He was pain-free for most of his visit here. Departure - Departure Disposition: Home, Self Care Clinical Impression: Hypertension, Chest pain Condition: Good Record reviewed to determine appropriate education?: Yes Instructions: ED Chest Pain NonCardiac Prescriptions: Losartan [Cozaar] 100 mg PO DAILY #30 tablet Comments: As discussed, the work-up in your heart was negative/normal with normal chest x- ray, and lab work including troponin. That said your blood sugar was 214, make sure to keep an eye on this and [place] We are restarting your losartan but you should follow-up with your PCM, next available appointment. Return for new or worsening symptoms.
[2022-06-09 14:04] LABS: BASOPHILS % (AUTO) 0.9 %; EOSINOPHILS # (AUTO) 0.1 10^3/uL (0.0-0.7); EOSINOPHILS % (AUTO) 1.6 %; HCT - HEMATOCRIT 41.3 % (42.0-52.0); HGB - HEMOGLOBIN 13.5 g/dL (14.0-18.0); LYMPHOCYTES # (AUTO) 0.3 10^3/uL (1.5-3.5); MEAN CORPUSCULAR HEMOGLOBIN 28.3 pg (27.0-31.0); MEAN CORPUSCULAR HGB CONC 32.7 g/dL (32.0-36.0); MEAN CORPUSCULAR VOLUME 86.6 fL (80.0-94.0); MEAN PLATELET VOLUME 10.4 fL (7.4-11.4); MONOCYTES # (AUTO) 0.4 10^3/uL (0.0-1.0); MONOCYTES % (AUTO) 8.9 %; NEUTROPHILS # (AUTO) 3.7 10^3/uL (1.5-6.6); NEUTROPHILS % (AUTO) 82.2 %; PLT - PLATELET COUNT 290 10^3/uL (130-450); RED BLOOD COUNT 4.77 10^6/uL (4.70-6.10); RED CELL DISTRIBUTION WIDTH 13.5 % (12.0-15.0); WHITE BLOOD COUNT 4.5 x10^3/uL (4.8-10.8)
--- NOTE | 2022-06-09 14:14 | XRAY Report ---
PROCEDURE: Chest 1 View X-Ray INDICATIONS: Chest Pain TECHNIQUE: One view of the chest was acquired. COMPARISON: 08/17/2021. FINDINGS: Surgical changes and devices: None. Lungs and pleura: No pleural effusions or pneumothorax. Lungs are clear. Mediastinum: Mediastinal contours appear normal. Heart size is normal. Bones and chest wall: No suspicious bony lesions. Overlying soft tissues appear unremarkable. IMPRESSION: No acute cardiopulmonary process. Reviewed by: Garcia Herr MD on 06/09/2022 2:12 PM PDT Approved by: Garcia Herr MD on 06/09/2022 2:12 PM PDT Station ID: [id number]
[2022-06-09 14:19] LABS: ALBUMIN 3.6 g/dL (3.2-5.5); ALBUMIN/GLOBULIN RATIO 1.3 (1.0-2.2); BILIRUBIN,TOTAL 0.5 mg/dL (0.2-1.0); CALCIUM 9.8 mg/dL (8.5-10.3); CREATININE 0.9 mg/dL (0.6-1.2); POTASSIUM 3.7 mmol/L (3.5-5.0); TOTAL PROTEIN 6.3 g/dL (6.7-8.2)
[2022-06-09 14:33] VITALS: BP 151/94
== END 2022-06-09 14:40 | disposition home or self-care (01) ==
LOC: ED 13:29
DX: R07.9 Chest pain, unspecified (principal); I10 Essential (primary) hypertension; Z87.891 Personal history of nicotine dependence
CPT/HCPCS: 36415; 80053; 83690; 84484; 85025; 93005; 99284

== ENCOUNTER 2022-08-01 22:02 | Emergency (ER) | payer MEDICARE, OTHER ==
[2022-08-01] MEDS ORDERED: ONDANSETRON 4 MG/2 ML VIAL IVP STA (22:25)
[2022-08-01] MEDS ORDERED: ASPIRIN CHEW 81 MG TABLET PO STA (22:25)
[2022-08-01] MEDS ORDERED: MORPHINE 2 MG/ML CARPUJECT IVP STA (22:25)
[2022-08-01] MEDS ORDERED: SODIUM CHLORIDE 0.9% 1,000 ML IV STA (22:25)
--- NOTE | 2022-08-01 22:29 | ED Physician Documentation ---
History of Present Illness - Stated complaint Stated Complaint: CHEST/ABD PX - Chief complaint Chief Complaint: Cardiac - Additonal information Additional information: Patient is a 51-year-old male with past medical significant for untreated hypertension and MS presenting to the emergency department with chest and abdominal pain. At approximately 1900 hrs. this evening began experiencing chest pain which he describes "as though someone is pulling my sternum apart". This was associated with a bandlike lower abdominal pain. He denies nausea, vomiting or diaphoresis. He was sitting at rest when this event occurred. He reports a past medical significant for cholecystectomy in the distant past but denies any other abdominal surgeries. Last p.o. intake was 5 PM. He does report that approximately 4 PM he took an at a marijuana edible however states that he is accustomed to these as he regularly takes them as part of his therapy for his MS. Also reports 1 alcoholic beverage earlier this evening. Does report that he has not been taking his prescribed losartan for his blood pressure stating that he has not yet followed up with his PCP for a refill of this prescription. Review of Systems Constitutional: denies: Fever Eyes: denies: Loss of vision Ears: denies: Loss of hearing Nose: denies: Rhinorrhea / runny nose Throat: denies: Dental pain / toothache Cardiac: reports: Chest pain / pressure Respiratory: denies: Dyspnea GI: reports: Abdominal Pain. denies: Nausea, Vomiting, Constipation, Diarrhea PD PAST MEDICAL HISTORY - Past Medical History Cardiovascular: Hypertension Respiratory: None Neuro: Peripheral neuropathy, Multiple sclerosis Endocrine/Autoimmune: Type 2 diabetes GI: Diverticulitis, Other : None HEENT: None Psych: None Musculoskeletal: None Derm: None - Past Surgical History Past Surgical History: Yes General: Cholecystectomy Ortho: Other - Present Medications Home Medications: Ambulatory Orders Medication Instructions Recorded Confirmed Cetirizine [ZyrTEC] 10 mg PO DAILY PRN 04/26/16 08/01/22 Baclofen 30 mg PO TID 02/09/17 08/01/22 Multivitamin [Theragran] 1 tab PO DAILY 02/09/17 08/01/22 Gabapentin [Neurontin] 200 - 300 mg PO TID 04/21/18 08/01/22 amantadine HCL [Amantadine] 100 mg PO BID 04/21/18 08/01/22 Fingolimod HCl [Fingolimod] 0.5 mg PO DAILY 08/01/22 08/01/22 diphenhydrAMINE [Benadryl] 50 mg PO HS 08/01/22 08/01/22 - Allergies Allergies/Adverse Reactions: Allergies Allergy/AdvReac Type Severity Reaction Status Date / Time No Known Drug Allergies Allergy Verified 08/01/22 22:11 - Social History Does the pt smoke?: No Smoking Status: Former smoker Does the pt drink ETOH?: Yes Does the pt have substance abuse?: No - Immunizations Immunizations are current?: Yes - POLST Patient has POLST: No POLST Status: Full Code PD ED PE NORMAL - Vitals Vital signs reviewed: Yes - General General: Alert and oriented X 3, No acute distress, Well developed/nourished - HEENT HEENT: Atraumatic - Neck Neck: Supple, no meningeal sign, No bony TTP, No adenopathy - Cardiac Cardiac: RRR, No murmur, No gallop, Strong equal pulses - Respiratory Respiratory: No respiratory distress - Abdomen Abdomen: Normal bowel sounds, Other (General tenderness without guarding, rebound or rigidity to the upper abdomen.) - Male Male : Deferred - Rectal Rectal: Deferred - Back Back: No CVA TTP - Derm Derm: Normal color - Extremities Extremities: No deformity - Neuro Neuro: Alert and oriented X 3, health information technologist 2-12 intact, No motor deficit, No sensory deficit, Normal speech Results - Vitals Vitals: Vital Signs - 24 hr 08/01/22 08/01/22 08/01/22 22:11 22:13 22:43 Temperature 36.5 C Heart Rate 110 H 96 97 Respiratory 22 24 20 Rate Blood Pressure 158/100 H 175/106 H 151/100 H O2 Saturation 98 96 94 08/01/22 08/01/22 08/02/22 23:13 23:43 00:30 Temperature Heart Rate 99 101 H 86 Respiratory 21 19 14 Rate Blood Pressure 151/102 H 155/107 H 137/85 H O2 Saturation 97 97 99 08/02/22 01:35 Temperature Heart Rate 80 Respiratory 21 Rate Blood Pressure 136/98 H O2 Saturation 94 Oxygen O2 Source Room air - EKG (time done) 4106 EKG releavant findings:: EKG personally interpreted by author of this note. Relevant findings are: Sinus rhythm with rate 102 bpm. Normal axis. Normal SC, QRS, QTc intervals. No ST segment elevations. - Labs Labs: Laboratory Tests 08/01/22 08/01/22 08/01/22 22:30 22:30 22:30 WBC 6.8 RBC 4.78 Hgb 13.6 L Hct 41.5 L MCV 86.8 MCH 28.5 MCHC 32.8 RDW 13.9 Plt Count 277 MPV 10.1 Neut # (Auto) 6.0 Lymph # (Auto) 0.3 L [place] # (Auto) 0.4 Eos # (Auto) 0.1 Baso # (Auto) 0.0 Absolute Nucleated RBC 0.00 Nucleated RBC % 0.0 D-Dimer Sodium Potassium Chloride Carbon Dioxide Anion Gap BUN Creatinine Estimated GFR (MDRD) Glucose Lactic Acid 1.2 Calcium Total Bilirubin AST ALT Alkaline Phosphatase Troponin I High Sens 6.2 Total Protein Albumin Globulin Albumin/Globulin Ratio Lipase 08/01/22 08/01/22 08/01/22 22:30 22:51 22:51 WBC RBC Hgb Hct MCV MCH MCHC RDW Plt Count MPV Neut # (Auto) Lymph # (Auto) [place] # (Auto) Eos # (Auto) Baso # (Auto) Absolute Nucleated RBC Nucleated RBC % D-Dimer < 200.0 L Sodium 138 Potassium 3.3 L Chloride 104 Carbon Dioxide 26 Anion Gap 8.0 BUN 12 Creatinine 0.9 Estimated GFR (MDRD) 89 Glucose 155 H Lactic Acid Calcium 8.9 Total Bilirubin 0.9 AST 22 ALT 42 Alkaline Phosphatase 65 Troponin I High Sens 7.0 Total Protein 7.2 Albumin 4.1 Globulin 3.1 Albumin/Globulin Ratio 1.3 Lipase 22 PD Medical Decision Making - ED course Complexity details: reviewed results, re-evaluated patient, d/w patient ED course: Patient is 51-year-old male presenting to the emergency department with chest and abdominal pain. This is in the setting of a known history of MS as well as untreated hypertension. Patient hypertensive on arrival but otherwise hemodynamically stable. EKG is on above was negative for indications of acute cardiac ischemia or dysrhythmia. Patient did have a low level tachycardia on arrival to the emergency department. He is overall low risk Wells but cannot be definitively ruled out via PERC criteria and for PE. He had serial negative troponins however and a negative D-dimer making the probability of PE Low. The patient did complain of abdominal pain and had some epigastric tenderness to palpation. His lab work in the emergency department was overall very reassuring. I did obtain comprehensive imaging including CT scans of his chest, abdomen and pelvis which were benign with the exception of a fat-containing periumbilical hernia as well as hepatic steatosis likely secondary to body habitus. He was given IV morphine in the emergency department as well as a GI cocktail with significant symptomatic relief. He reports that he currently has a prescription for Pepcid at home but has not been taking it. After approximately 3 hours in the emergency department he reported feeling significantly better. Will discharge at this time for follow-up with primary care. Will discharge with some medication for pain and nausea for symptomatic management until he is able to see his primary care doctor. Clear return precautions given prior to discharge. Departure - Departure Disposition: Home, Self Care Clinical Impression: Atypical chest pain, Periumbilical hernia, Hepatic steatosis Abdominal pain Qualifiers: Abdominal location: epigastric Qualified Code(s): R10.13 - Epigastric pain Instructions: ED Chest Pain Atypical Unkn Cause, ED Abdominal Pain Cause Unkn Male Ch Comments: Thank you for allowing us to care for you today at [facility]. Today in the emergency department your evaluated for any possible life- threatening medical emergency. All of the testing performed in the emergency department today including your EKG, blood work and the CT scans of your chest, abdomen and pelvis were all very reassuring. I would like you to resume taking your antihypertensive medications as well as begin taking a daily Pepcid tablet both to treat your hypertension as well as to treat any possible gastritis or peptic ulcer disease that could have been contributing to your symptoms in the emergency department today. I will be discharging you with a small number of Percocet, a narcotic pain medication that is both sedating and habit-forming, please use this only as directed. Also be discharging us a medication to help take for any ongoing nausea. Please make a follow-up appoint with your primary care doctor soon as possible. If it anytime your symptoms return or worsen please come back to the emergency department for reevaluation. Discharge Date/Time: 08/02/22 01:35
[2022-08-01 22:37] LABS: BASOPHILS % (AUTO) 0.4 %; EOSINOPHILS # (AUTO) 0.1 10^3/uL (0.0-0.7); HCT - HEMATOCRIT 41.5 % (42.0-52.0); HGB - HEMOGLOBIN 13.6 g/dL (14.0-18.0); LYMPHOCYTES # (AUTO) 0.3 10^3/uL (1.5-3.5); MEAN CORPUSCULAR HEMOGLOBIN 28.5 pg (27.0-31.0); MEAN CORPUSCULAR HGB CONC 32.8 g/dL (32.0-36.0); MEAN CORPUSCULAR VOLUME 86.8 fL (80.0-94.0); MEAN PLATELET VOLUME 10.1 fL (7.4-11.4); MONOCYTES # (AUTO) 0.4 10^3/uL (0.0-1.0); MONOCYTES % (AUTO) 5.9 %; NEUTROPHILS % (AUTO) 88.4 %; PLT - PLATELET COUNT 277 10^3/uL (130-450); RED BLOOD COUNT 4.78 10^6/uL (4.70-6.10); RED CELL DISTRIBUTION WIDTH 13.9 % (12.0-15.0); WHITE BLOOD COUNT 6.8 x10^3/uL (4.8-10.8)
--- NOTE | 2022-08-01 22:55 | XRAY Report ---
PROCEDURE: Chest 1 View X-Ray INDICATIONS: Chest pain TECHNIQUE: One view of the chest was acquired. COMPARISON: 06/09/2022. FINDINGS: Surgical changes and devices: None. Lungs and pleura: No pleural effusions or pneumothorax. Lungs are clear. Mediastinum: Mediastinal contours appear normal. Heart size is normal. Bones and chest wall: No suspicious bony lesions. Overlying soft tissues appear unremarkable. IMPRESSION: No acute cardiopulmonary disease. Reviewed by: Oracio Menendez MD on 08/01/2022 10:53 PM PDT Approved by: Oracio Menendez MD on 08/01/2022 10:53 PM PDT Station ID: [id number]
[2022-08-01 23:08] LABS: ALBUMIN 4.1 g/dL (3.2-5.5); ALBUMIN/GLOBULIN RATIO 1.3 (1.0-2.2); BILIRUBIN,TOTAL 0.9 mg/dL (0.2-1.0); CALCIUM 8.9 mg/dL (8.5-10.3); CREATININE 0.9 mg/dL (0.6-1.2); POTASSIUM 3.3 mmol/L (3.5-5.0); TOTAL PROTEIN 7.2 g/dL (6.7-8.2)
--- NOTE | 2022-08-02 00:18 | CT Report ---
PROCEDURE: CHEST W INDICATIONS: Chest and abd pain CONTRAST: 100 ML OMNI 350 TECHNIQUE: After the administration of intravenous contrast, 1 mm axial images were acquired from the pulmonary apices through the posterior costophrenic angles. Axial 5 mm soft tissue kernel reconstructions were performed as well as 8 mm axial MIP and coronal and sagittal 5 mm reformations. For radiation dose reduction, the following was used: automated exposure control, adjustment of mA and/or kV according to patient size. COMPARISON: Concurrent CT abdomen pelvis. CT abdomen pelvis 08/19/2019. Chest x-ray 08/01/2022. FINDINGS: Image quality: Excellent. Lower Neck: No lymphadenopathy by size criteria. Thyroid: Visualized thyroid demonstrates no discrete nodules. Axillae: No lymphadenopathy by size criteria. Chest Wall: Unremarkable. Bones: Visualized osseous structures demonstrate no suspicious lesions. Lungs and Airways: No acute consolidation. There is mild dependent atelectasis bilaterally. The trac hea and central airways are patent. Pleura: No pneumothorax or pleural effusions. Heart: Heart size is normal. No pericardial effusion. Thoracic Vessels: The aorta and pulmonary arteries are normal in size. Mediastinum and [place]: No lymphadenopathy by size criteria. Esophagus: No wall thickening. No hiatal hernia. Upper Abdomen: Unremarkable. IMPRESSION: 1. No acute abnormality in the thorax. Reviewed by: Oracio Menendez MD on 08/02/2022 12:17 AM PDT Approved by: Oracio Menendez MD on 08/02/2022 12:17 AM PDT Station ID: [id number]
[2022-08-02] MEDS ORDERED: MORPHINE 2 MG/ML CARPUJECT IVP STA (00:33)
[2022-08-02] MEDS ORDERED: MAG HYDROX/AL HYDROX/SIMETH 30 ML UDC PO STA (00:33)
[2022-08-02] MEDS ORDERED: LIDOCAINE VISCOUS 2% 15 ML ORAL SYRINGE MM STA (00:33)
--- NOTE | 2022-08-02 00:54 | CT Report ---
PROCEDURE: ABDOMEN/PELVIS W INDICATIONS: Abd pain CONTRAST: 100 ML OMNI 350 TECHNIQUE: After the administration of intravenous contrast, 5 mm thick sections acquired from the diaphragms to the symphysis. 5 mm thick coronal and sagittal reformats were acquired. For radiation dose reducti on, the following was used: automated exposure control, adjustment of mA and/or kV according to diana ent size. COMPARISON: CT abdomen pelvis 08/19/2019, 04/21/2018 FINDINGS: Image quality: Excellent. Lung bases:There is mild dependent atelectasis. Heart: Heart is normal in size. ABDOMEN: Liver:There is hypoattenuation of the liver consistent with fatty infiltration. Gallbladder:Surgically absent. Biliary ducts: No biliary ductal dilatation. Pancreas: Unremarkable. Spleen: Normal in size. Adrenal Glands: No adrenal nodules. Kidneys and Ureters: No hydronephrosis. Stomach and Bowel: Stomach, small bowel loops, and colon are normal in caliber and wall thickness. T he appendix is normal. There is colonic diverticulosis without acute diverticulitis. Peritoneum: No abnormal intraperitoneal fluid. No free air. Ventral Wall: There is a small fat-containing supraumbilical hernia. Abdominal Nodes: No retroperitoneal or mesenteric adenopathy by size criteria. Vessels: Aorta and inferior vena cava are normal in size. PELVIS: Pelvic Organs: Unremarkable. Bladder: Unremarkable. Pelvic Nodes: No enlarged lymph nodes. Miscellaneous: No inguinal hernias. Bones: Visualized osseous structures demonstrate no suspicious lesions. IMPRESSION: 1. Small fat-containing supraumbilical hernia. 2. Hepatic steatosis. Reviewed by: Oracio Menendez MD on 08/02/2022 12:53 AM PDT Approved by: rOacio Menendez MD on 08/02/2022 12:53 AM PDT Station ID: [id number]
[2022-08-02] MEDS ORDERED: ONDANSETRON ODT 4 MG Prepack 2 TL PRN (01:08)
[2022-08-02] MEDS ORDERED: oxyCODONE/ACET 5/325 Prepack 4 PO STA (01:08)
[2022-08-02 01:38] VITALS: BP 136/98
== END 2022-08-02 01:35 | disposition home or self-care (01) ==
LOC: ED 22:02
DX: K42.9 Umbilical hernia without obstruction or gangrene (principal); K76.0 Fatty (change of) liver, not elsewhere classified; R10.13 Epigastric pain; R07.89 Other chest pain; I10 Essential (primary) hypertension; E11.9 Type 2 diabetes mellitus without complications; Z87.891 Personal history of nicotine dependence
CPT/HCPCS: 36415; 71045; 71260; 74177; 80053; 83605; 83690; 84484; 85025; 85379; 93005; 96374; 96375; 96376; 99284; A9270; Q9967

== ENCOUNTER 2023-04-16 08:00 | Outpatient (CLI) | payer MEDICARE, OTHER ==
[2023-04-16 11:22] LABS: RAPID STREP SCREEN Negative (Negative)
== END 2023-04-16 23:59 | disposition home or self-care (01) ==
LOC: LAB.N 08:00
PROVIDERS: ATTEND Emergency Medicine
DX: J02.9 Acute pharyngitis, unspecified (principal)
CPT/HCPCS: 87070; 87430

== ENCOUNTER 2023-05-04 09:30 | Outpatient (CLI) | payer MEDICARE, OTHER ==
[2023-05-04 09:50] LABS: BASOPHILS % (AUTO) 0.5 %; EOSINOPHILS # (AUTO) 0.1 10^3/uL (0.0-0.7); EOSINOPHILS % (AUTO) 1.6 %; HCT - HEMATOCRIT 40.3 % (42.0-52.0); HGB - HEMOGLOBIN 13.1 g/dL (14.0-18.0); LYMPHOCYTES # (AUTO) 0.2 10^3/uL (1.5-3.5); MEAN CORPUSCULAR HEMOGLOBIN 28.1 pg (27.0-31.0); MEAN CORPUSCULAR HGB CONC 32.5 g/dL (32.0-36.0); MEAN CORPUSCULAR VOLUME 86.5 fL (80.0-94.0); MEAN PLATELET VOLUME 10.1 fL (7.4-11.4); MONOCYTES # (AUTO) 0.4 10^3/uL (0.0-1.0); MONOCYTES % (AUTO) 9.3 %; NEUTROPHILS # (AUTO) 3.2 10^3/uL (1.5-6.6); NEUTROPHILS % (AUTO) 82.3 %; PLT - PLATELET COUNT 263 10^3/uL (130-450); RED BLOOD COUNT 4.66 10^6/uL (4.70-6.10); RED CELL DISTRIBUTION WIDTH 13.6 % (12.0-15.0); WHITE BLOOD COUNT 3.9 x10^3/uL (4.8-10.8)
[2023-05-04 10:05] LABS: ALBUMIN/GLOBULIN RATIO 1.6 (1.0-2.2); BILIRUBIN,TOTAL 0.5 mg/dL (0.2-1.0); CALCIUM 9.9 mg/dL (8.5-10.3); CREATININE 0.8 mg/dL (0.6-1.3); POTASSIUM 3.6 mmol/L (3.5-4.5); TOTAL PROTEIN 6.5 g/dL (6.4-8.9)
== END 2023-05-04 09:31 | disposition home or self-care (01) ==
LOC: LAB 09:30
PROVIDERS: ATTEND Emergency Medicine
DX: I10 Essential (primary) hypertension (principal)
CPT/HCPCS: 36415; 80053; 85025

== ENCOUNTER 2023-05-06 09:32 | Outpatient (CLI) | payer MEDICARE, OTHER ==
[2023-05-06 09:59] LABS: BASOPHILS % (AUTO) 0.2 %; EOSINOPHILS # (AUTO) 0.1 10^3/uL (0.0-0.7); EOSINOPHILS % (AUTO) 1.4 %; HCT - HEMATOCRIT 43.1 % (42.0-52.0); HGB - HEMOGLOBIN 13.5 g/dL (14.0-18.0); LYMPHOCYTES # (AUTO) 0.3 10^3/uL (1.5-3.5); LYMPHOCYTES % (AUTO) 5.3 %; MEAN CORPUSCULAR HEMOGLOBIN 27.2 pg (27.0-31.0); MEAN CORPUSCULAR HGB CONC 31.3 g/dL (32.0-36.0); MEAN CORPUSCULAR VOLUME 86.9 fL (80.0-94.0); MEAN PLATELET VOLUME 10.8 fL (7.4-11.4); MONOCYTES # (AUTO) 0.4 10^3/uL (0.0-1.0); NEUTROPHILS # (AUTO) 4.4 10^3/uL (1.5-6.6); NEUTROPHILS % (AUTO) 85.7 %; PLT - PLATELET COUNT 279 10^3/uL (130-450); RED BLOOD COUNT 4.96 10^6/uL (4.70-6.10); RED CELL DISTRIBUTION WIDTH 13.6 % (12.0-15.0); WHITE BLOOD COUNT 5.1 x10^3/uL (4.8-10.8)
[2023-05-06 10:04] LABS: ALBUMIN 4.2 g/dL (3.2-5.5); ALBUMIN/GLOBULIN RATIO 1.8 (1.0-2.2); ALKALINE PHOSPHATASE 67 IU/L (42-121); ALT ALANINE AMINOTRANSFERASE 41 IU/L (10-60); AST ASPARTATE AMINOTRANSFERASE 21 IU/L (10-42); BILIRUBIN,TOTAL 0.5 mg/dL (0.2-1.0); BUN - BLOOD UREA NITROGEN 14 mg/dL (6-20); CALCIUM 9.2 mg/dL (8.5-10.3); CARBON DIOXIDE - CO2 30 mmol/L (21-32); CHLORIDE 103 mmol/L (101-111); CHOL/HDL RATIO 5.4 (<5.0); CHOLESTEROL 220 mg/dL; CREATININE 0.8 mg/dL (0.6-1.3); GFR - MDRD 102 (>89); GLUCOSE 177 mg/dL (74-104); HDL CHOLESTEROL 41 mg/dL; LDL CHOLESTEROL,CALCULATED 148 mg/dL; LDL/HDL RATIO 3.6 (<3.6); POTASSIUM 3.7 mmol/L (3.5-4.5); SODIUM 139 mmol/L (135-145); TOTAL PROTEIN 6.6 g/dL (6.4-8.9); TRIGLYCERIDES 153 mg/dL (48-352); VLDL CHOLESTEROL 31 mg/dL
[2023-05-06 10:18] LABS: THYROID STIMULATING HORMONE 0.65 uIU/mL (0.34-5.60)
[2023-05-06 10:45] LABS: CREATININE,URINE 94.7 mg/dL; MICROALBUM/CREATININE RATIO,UR 8.4 ug/mg (<30.0); MICROALBUMIN,URINE 0.8 mg/dL
[2023-05-06 12:02] LABS: ESTIMATED AVERAGE GLUCOSE 186 mg/dL (70-100); HEMOGLOBIN A1c% 8.1 % (4.27-6.07)
== END 2023-05-06 09:33 | disposition home or self-care (01) ==
LOC: LAB 09:32
PROVIDERS: ATTEND Nurse Practitioner Family
DX: E78.5 Hyperlipidemia, unspecified (principal); I10 Essential (primary) hypertension; E55.9 Vitamin D deficiency, unspecified; E11.65 Type 2 diabetes mellitus with hyperglycemia; K57.92 Diverticulitis of intestine, part unspecified, without perforation or abscess without bleeding
CPT/HCPCS: 36415; 80053; 80061; 82043; 82306; 82570; 83036; 83721; 84153; 84443; 85025

== ENCOUNTER 2023-06-03 02:22 | Outpatient (CLI) | payer MEDICARE, OTHER | END 2023-06-03 23:59 | disposition critical access hospital (66) | LOC: EMS 02:22 | DX: R42 Dizziness and giddiness (principal); R55 Syncope and collapse; R03.1 Nonspecific low blood-pressure reading; M54.2 Cervicalgia; G35 Multiple sclerosis | CPT/HCPCS: A0425 ×2 ==

== ENCOUNTER 2023-06-03 02:30 | Emergency (ER) | payer MEDICARE, OTHER ==
--- NOTE | 2023-06-03 02:39 | ED Physician Documentation ---
History of Present Illness - Stated complaint Stated Complaint: DIZZY - History obtained from History obtained from: Patient - Additonal information Additional information: 52yM with pmh ms, dm2, htn on amlodipine, lisinopril, and newly added chlorthalidone 4 days prior p/w lightheadedness with going from sitting to standing. denies cp, soa, fever, n/v/d abdominal pain, uri symptoms. PD PAST MEDICAL HISTORY - Past Medical History Cardiovascular: Hypertension Respiratory: None Neuro: Peripheral neuropathy, Multiple sclerosis Endocrine/Autoimmune: Type 2 diabetes GI: Diverticulitis, Other : None HEENT: None Psych: None Musculoskeletal: None Derm: None - Past Surgical History Past Surgical History: Yes General: Cholecystectomy Ortho: Other - Present Medications Home Medications: Ambulatory Orders Medication Instructions Recorded Confirmed Cetirizine [ZyrTEC] 10 mg PO DAILY PRN 04/26/16 08/01/22 Baclofen 30 mg PO TID 02/09/17 08/01/22 Multivitamin [Theragran] 1 tab PO DAILY 02/09/17 08/01/22 Gabapentin [Neurontin] 200 - 300 mg PO TID 04/21/18 08/01/22 amantadine HCL [Amantadine] 100 mg PO BID 04/21/18 08/01/22 Fingolimod HCl [Fingolimod] 0.5 mg PO DAILY 08/01/22 08/01/22 diphenhydrAMINE [Benadryl] 50 mg PO HS 08/01/22 08/01/22 - Allergies Allergies/Adverse Reactions: Allergies Allergy/AdvReac Type Severity Reaction Status Date / Time No Known Drug Allergies Allergy Verified 06/03/23 02:44 - Social History Does the pt smoke?: No Smoking Status: Former smoker Does the pt drink ETOH?: Yes Does the pt have substance abuse?: No - Immunizations Immunizations are current?: Yes - POLST Patient has POLST: No POLST Status: Full Code PD ED PE NORMAL - Vitals Vital signs reviewed: Yes - General General: Alert and oriented X 3, No acute distress, Well developed/nourished - HEENT HEENT: Atraumatic, PERRL, EOMI, Moist mucous membranes, Pharynx benign - Neck Neck: Supple, no meningeal sign - Cardiac Cardiac: RRR - Respiratory Respiratory: No respiratory distress, Clear bilaterally - Abdomen Abdomen: Non tender, Non distended - Derm Derm: Normal color Results - Vitals Vitals: Vital Signs - 24 hr 06/03/23 06/03/23 06/03/23 02:42 02:45 02:46 Temperature 36.9 C Heart Rate 68 75 Heart Rate [ 75 Standing] Heart Rate [ 68 Supine] Respiratory 16 16 Rate Blood Pressure 96/60 Blood Pressure 95/72 [Standing] Blood Pressure 96/60 [Supine] O2 Saturation 98 98 Oxygen O2 Source Room air - EKG (time done) 0234 EKG releavant findings:: EKG personally interpreted by author of this note. Relevant findings are: Rate: Rate (enter#) (68) Rhythm: NSR [place]: Normal Intervals: Normal [place] QRS: LVH Ischemia: Normal ST segments - Labs Labs: Laboratory Tests 06/03/23 06/03/23 03:09 03:09 WBC 5.6 RBC 4.65 L Hgb 13.2 L Hct 41.1 L MCV 88.4 MCH 28.4 MCHC 32.1 RDW 14.4 Plt Count 263 MPV 10.3 Neut # (Auto) 4.7 Lymph # (Auto) 0.2 L [place] # (Auto) 0.5 Eos # (Auto) 0.1 Baso # (Auto) 0.0 Absolute Nucleated RBC 0.00 Nucleated RBC % 0.0 Sodium 138 Potassium 3.4 L Chloride 102 Carbon Dioxide 26 Anion Gap 10.0 BUN 29 H Creatinine 1.4 H Estimated GFR (MDRD) 53 L Glucose 161 H Calcium 9.6 Total Bilirubin 0.3 AST 14 ALT 29 Alkaline Phosphatase 49 Total Protein 5.9 L Albumin 3.9 Globulin 2.0 L Albumin/Globulin Ratio 2.0 Lipase 19 PD Medical Decision Making - ED course ED course: 52yM p/w positional lightheadedness, worse with standing from sitting, possibly linked to low blood pressure 2/2 adding chlorthalidone to his medication regimen 4 days ago. cbc, abdominal panel, cardiac monitoring and ekg uncovered no emergent issues aside from mild kathy with cre 1.4 (baseline normal). His BP is in the low normal range here. IVF provided with improvement in dizziness. advised to hold chlorthalidone until he has had a chance to f/u with his pcp since he seems to be overmedicating. Departure - Departure Disposition: 01 Home, Self Care Clinical Impression: Dizziness, KATHY (acute kidney injury) Condition: Stable Instructions: ED Dizziness [facility]O Comments: You were seen in the emergency department for dizziness that may be caused by chlorthalidone, your new blood pressure medication. It may have caused some mild dehydration, as evidenced by your dizziness, low blood pressure and mild kidney irritation on labwork (creatinine 1.4). Please do not take this medication until you have been reassessed by your primary care provider. Please follow-up with your primary care provider and return to the emergency department if you have any new or worsening symptoms or other concerns.
[2023-06-03 02:53] VITALS: O2SAT 98
[2023-06-03] MEDS: SODIUM CHLORIDE 0.9% 1,000 ML IV STA (03:03)
[2023-06-03 03:14] LABS: BASOPHILS % (AUTO) 0.4 %; EOSINOPHILS # (AUTO) 0.1 10^3/uL (0.0-0.7); EOSINOPHILS % (AUTO) 1.6 %; HCT - HEMATOCRIT 41.1 % (42.0-52.0); HGB - HEMOGLOBIN 13.2 g/dL (14.0-18.0); LYMPHOCYTES # (AUTO) 0.2 10^3/uL (1.5-3.5); LYMPHOCYTES % (AUTO) 3.8 %; MEAN CORPUSCULAR HEMOGLOBIN 28.4 pg (27.0-31.0); MEAN CORPUSCULAR HGB CONC 32.1 g/dL (32.0-36.0); MEAN CORPUSCULAR VOLUME 88.4 fL (80.0-94.0); MEAN PLATELET VOLUME 10.3 fL (7.4-11.4); MONOCYTES # (AUTO) 0.5 10^3/uL (0.0-1.0); MONOCYTES % (AUTO) 9.7 %; NEUTROPHILS # (AUTO) 4.7 10^3/uL (1.5-6.6); NEUTROPHILS % (AUTO) 84.3 %; PLT - PLATELET COUNT 263 10^3/uL (130-450); RED BLOOD COUNT 4.65 10^6/uL (4.70-6.10); RED CELL DISTRIBUTION WIDTH 14.4 % (12.0-15.0); WHITE BLOOD COUNT 5.6 x10^3/uL (4.8-10.8)
[2023-06-03 03:30] LABS: ALBUMIN 3.9 g/dL (3.2-5.5); BILIRUBIN,TOTAL 0.3 mg/dL (0.2-1.0); CALCIUM 9.6 mg/dL (8.5-10.3); CREATININE 1.4 mg/dL (0.6-1.3); POTASSIUM 3.4 mmol/L (3.5-4.5); TOTAL PROTEIN 5.9 g/dL (6.4-8.9)
[2023-06-03] MEDS: SODIUM CHLORIDE 0.9% 500 ML IV STA (03:55)
[2023-06-03 05:00] VITALS: BP 138/70
== END 2023-06-03 05:00 | disposition home or self-care (01) ==
LOC: EDUNIT# → ED 02:30
DX: N17.9 Acute kidney failure, unspecified (principal); I10 Essential (primary) hypertension; E11.9 Type 2 diabetes mellitus without complications; Z87.891 Personal history of nicotine dependence
CPT/HCPCS: 36415; 80053; 83690; 85025; 93005; 96360; 99284

== ENCOUNTER 2023-08-16 09:50 | Outpatient (CLI) | payer MEDICARE, OTHER ==
[2023-08-16 10:05] LABS: BASOPHILS % (AUTO) 0.8 %; EOSINOPHILS # (AUTO) 0.1 10^3/uL (0.0-0.7); EOSINOPHILS % (AUTO) 1.8 %; HCT - HEMATOCRIT 44.1 % (42.0-52.0); HGB - HEMOGLOBIN 13.9 g/dL (14.0-18.0); LYMPHOCYTES # (AUTO) 0.4 10^3/uL (1.5-3.5); LYMPHOCYTES % (AUTO) 7.5 %; MEAN CORPUSCULAR HEMOGLOBIN 27.9 pg (27.0-31.0); MEAN CORPUSCULAR HGB CONC 31.5 g/dL (32.0-36.0); MEAN CORPUSCULAR VOLUME 88.6 fL (80.0-94.0); MONOCYTES # (AUTO) 0.4 10^3/uL (0.0-1.0); MONOCYTES % (AUTO) 8.7 %; PLT - PLATELET COUNT 286 10^3/uL (130-450); RED BLOOD COUNT 4.98 10^6/uL (4.70-6.10); RED CELL DISTRIBUTION WIDTH 14.6 % (12.0-15.0); WHITE BLOOD COUNT 4.9 x10^3/uL (4.8-10.8)
[2023-08-16 10:23] LABS: ALBUMIN 4.2 g/dL (3.2-5.5); ALBUMIN/GLOBULIN RATIO 1.9 (1.0-2.2); ALKALINE PHOSPHATASE 46 IU/L (42-121); ALT ALANINE AMINOTRANSFERASE 30 IU/L (10-60); AST ASPARTATE AMINOTRANSFERASE 17 IU/L (10-42); BILIRUBIN,TOTAL 0.4 mg/dL (0.2-1.0); BUN - BLOOD UREA NITROGEN 17 mg/dL (6-20); CALCIUM 9.7 mg/dL (8.5-10.3); CARBON DIOXIDE - CO2 30 mmol/L (21-32); CHLORIDE 103 mmol/L (101-111); CHOL/HDL RATIO 5.5 (<5.0); CHOLESTEROL 214 mg/dL; CREATININE 0.9 mg/dL (0.6-1.3); GFR - MDRD 89 (>89); GLUCOSE 141 mg/dL (74-104); HDL CHOLESTEROL 39 mg/dL; LDL CHOLESTEROL,CALCULATED 138 mg/dL; LDL/HDL RATIO 3.5 (<3.6); SODIUM 138 mmol/L (135-145); TOTAL PROTEIN 6.4 g/dL (6.4-8.9); TRIGLYCERIDES 187 mg/dL (48-352); VLDL CHOLESTEROL 37 mg/dL
[2023-08-16 13:31] LABS: ESTIMATED AVERAGE GLUCOSE 126 mg/dL (70-100)
== END 2023-08-16 09:51 | disposition home or self-care (01) ==
LOC: LAB 09:50
PROVIDERS: ATTEND Nurse Practitioner Family
DX: E11.65 Type 2 diabetes mellitus with hyperglycemia (principal); E78.5 Hyperlipidemia, unspecified; R79.89 Other specified abnormal findings of blood chemistry
CPT/HCPCS: 36415; 80053; 80061; 83036; 83721; 85025